=== PATIENT | female | born 1950 | race Caucasian/White ===

== ENCOUNTER 2023-09-03 21:33 | Inpatient (IN) | payer MEDICARE ==
[2023-09-03] MEDS: NITROGLYCERIN-D5W PMX 50 MG in DEXTROSE/WATER 1 250ML.BAG IV ONE (22:09)
--- NOTE | 2023-09-03 22:38 | XR ---
EXAM: XR Chest, 1 View CLINICAL HISTORY: SOB TECHNIQUE: Frontal view of the chest. COMPARISON: No relevant prior studies available. FINDINGS: Lungs: Diffuse reticulonodular interstitial changes, most notable in the perihilar regions and mid to lower lung zones with subsegmental changes in the bilateral lower lung zones. Mild vascular equalization suspected. Pleural space: Small bilateral pleural effusions suspected with blunting of the costophrenic margins. Heart: The cardiac silhouette is within normal limits. Mediastinum: The mediastinal contours are unremarkable. No tracheal deviation. Bones/joints: Unremarkable. No acute fracture. IMPRESSION: 1. Diffuse reticulonodular interstitial changes, most notable in the perihilar regions and mid to lower lung zones with subsegmental changes in the bilateral lower lung zones. Favor or asymmetric dependent edema; however, coexisting infection is difficult to exclude. Please correlate clinically. 2. Small bilateral pleural effusions suspected with blunting of the costophrenic margins. No pneumothorax.
[2023-09-03] MEDS: MORPHINE SULFATE 4 MG/ML SYRINGE IV STA (22:49)
[2023-09-03 22:59] LABS: Basophils # (A) 0.1 k/uL (0-0.2); Basophils % (A) 0 %; Eosinophils # (A) 0.3 k/uL (0-0.7); Eosinophils % (A) 2 %; HGB 13.6 gm/dL (11.4-16.0); Hypochromasia Slight; Lymphocytes # (A) 1.8 k/uL (1.0-4.8); Lymphocytes % (A) 13 %; MCH 29.8 pg (25.0-35.0); MCHC 32.4 g/dL (31.0-37.0); Mean Platelet Volume 8.7; Monocytes # (A) 0.3 k/uL (0-1.0); Monocytes % (A) 3 %; Neutrophils # (A) 10.5 k/uL (1.3-7.7); Neutrophils % (A) 80 %; Platelet Count 261 k/uL (150-450); RBC 4.57 m/uL (3.80-5.40); RDW 13.3 % (11.5-15.5); WBC 13.1 k/uL (3.8-10.6)
[2023-09-03 23:10] LABS: ALT 45 U/L (4-34); AST 66 U/L (14-36); African American GFR (CKD) 51 (>60 ml/min/1.73 sqM); Albumin 4.1 g/dL (3.5-5.0); Alkaline Phosphatase 108 U/L (38-126); Anion Gap 10 mmol/L; Blood Urea Nitrogen 24 mg/dL (7-17); Calcium 9.5 mg/dL (8.4-10.2); Carbon Dioxide 17 mmol/L (22-30); Chloride 111 mmol/L (98-107); Glucose 213 mg/dL (74-99); Non-African American GFR(CKD) 44 (>60 ml/min/1.73 sqM); Potassium 3.6 mmol/L (3.5-5.1); Sodium 138 mmol/L (137-145); Total Bilirubin 0.7 mg/dL (0.2-1.3); Total Protein 6.9 g/dL (6.3-8.2)
[2023-09-03 23:20] LABS: NT-Pro-B-Type Natriuretic Pept 8190 pg/mL
--- NOTE | 2023-09-03 23:22 | ED ---
SOB HPI - General Chief Complaint: Shortness of Breath Stated Complaint: Chest pain, Difficulty Breathing Time Seen by Provider: 09/03/23 21:48 Source: patient, EMS Mode of arrival: EMS - History of Present Illness Initial Comments: This patient is 73-year-old woman arrives in respiratory distress, only able to answer in single words due to dyspnea. Patient denies chest pain. Symptoms came on past hours. MD Complaint: shortness of breath -: hour(s) Severity scale (1-10): 0 Consistency: constant Improves With: nothing Worsens With: lying flat Treatments Prior to Arrival: oxygen, bronchodilator - Related Data Home Oxygen Therapy: No Allergies Allergy/AdvReac Type Severity Reaction Status Date / Time No Known Allergies Allergy Verified 09/03/23 21:48 Review of Systems ROS Statement: Those systems with pertinent positive or pertinent negative responses have been documented in the HPI. ROS Other: All systems not noted in ROS Statement are negative. Limitations: ROS unobtainable due to patients medical condition Respiratory: Reports: dyspnea Cardiovascular: Reports: orthopnea. Denies: chest pain, edema Gastrointestinal: Denies: abdominal pain, vomiting Musculoskeletal: Denies: back pain Neurological: Denies: headache, weakness Past Medical History Past Medical History: Hypertension Past Surgical History: No Surgical Hx Reported Smoking Status: Former smoker Past Alcohol Use History: Occasional Past Drug Use History: Marijuana General Exam General appearance: alert, in distress Head exam: Present: atraumatic, normocephalic Eye exam: Present: normal appearance. Absent: scleral icterus, conjunctival injection Neck exam: Present: normal inspection, full ROM Respiratory exam: Present: respiratory distress, rales, rhonchi Cardiovascular Exam: Present: normal rhythm, tachycardia. Absent: systolic murmur, diastolic murmur GI/Abdominal exam: Present: soft. Absent: distended, tenderness, guarding, rebound, rigid, mass Extremities exam: Present: normal inspection, normal capillary refill. Absent: pedal edema, calf tenderness Back exam: Present: normal inspection. Absent: CVA tenderness (R), CVA tenderness (L) Neurological exam: Present: alert Skin exam: Present: intact, diaphoretic, mottled. Absent: rash Course Vital Signs 09/03/23 09/03/23 09/03/23 21:42 22:04 22:10 Pulse Rate 109 H Respiratory 24 40 H Rate Blood Pressure 256/176 O2 Sat by Pulse 83 L Oximetry Fraction of 40 Inspired Oxygen (FIO2) 09/03/23 09/03/23 09/04/23 22:16 23:49 01:50 Pulse Rate 111 H 91 Respiratory 40 H 26 H Rate Blood Pressure 203/134 116/87 O2 Sat by Pulse 90 L 97 Oximetry Fraction of 50 Inspired Oxygen (FIO2) 09/04/23 09/04/23 09/04/23 02:00 02:30 03:32 Pulse Rate 78 95 91 Respiratory 21 29 H 20 Rate Blood Pressure 169/100 174/108 116/84 O2 Sat by Pulse 99 99 98 Oximetry Fraction of Inspired Oxygen (FIO2) Medical Decision Making - Medical Decision Making Had chest x-ray that I interpreted as showing changes consistent with acute congestive heart failure. There is no pneumothorax. No definite infiltrate. Patient is a 73-year-old woman who arrives in significant respiratory distress. The patient is placed on BiPAP and I started nitroglycerin drip. I did administer a number of aliquots of nitroglycerin myself while monitoring the patient at the bedside. The nitroglycerin drip was titrated up to 50 mcg/min. This in addition to the BiPAP and the additional aliquots of medication did begin to bring a clinical improvement. The patient's diaphoresis resolved. The blood pressure began to improve. - Lab Data Result diagrams: 09/04/23 02:28 09/03/23 22:46 Lab Results 09/03/23 09/03/23 09/03/23 Range/Units 22:30 22:46 22:46 WBC 13.1 H (3.8-10.6) k/uL RBC 4.57 (3.80-5.40) m/uL Hgb 13.6 (11.4-16.0) gm/dL Hct 42.0 (34.0-46.0) % MCV 92.0 (80.0-100.0) fL MCH 29.8 (25.0-35.0) pg MCHC 32.4 (31.0-37.0) g/dL RDW 13.3 (11.5-15.5) % Plt Count 261 (150-450) k/uL MPV 8.7 Neutrophils % 80 % Lymphocytes % 13 % Monocytes % 3 % Eosinophils % 2 % Basophils % 0 % Neutrophils # 10.5 H (1.3-7.7) k/uL Lymphocytes # 1.8 (1.0-4.8) k/uL Monocytes # 0.3 (0-1.0) k/uL Eosinophils # 0.3 (0-0.7) k/uL Basophils # 0.1 (0-0.2) k/uL Hypochromasia Slight PT 11.9 (10.0-12.5) sec INR 1.1 (<1.2) APTT 19.8 L (22.0-30.0) sec D-Dimer 5.35 H (<0.60) mg/L FEU Sodium (137-145) mmol/L Potassium (3.5-5.1) mmol/L Chloride (98-107) mmol/L Carbon Dioxide (22-30) mmol/L Anion Gap mmol/L BUN (7-17) mg/dL Creatinine (0.52-1.04) mg/dL Est GFR (CKD-EPI)AfAm (>60 ml/min/1.73 sqM) Est GFR (CKD-EPI)NonAf (>60 ml/min/1.73 sqM) Glucose (74-99) mg/dL Lactic Ac Sepsis Rflx Plasma Lactic Acid Lance (0.7-2.0) mmol/L Calcium (8.4-10.2) mg/dL Magnesium (1.6-2.3) mg/dL Total Bilirubin (0.2-1.3) mg/dL AST (14-36) U/L ALT (4-34) U/L Alkaline Phosphatase (38-126) U/L Troponin I (0.000-0.034) ng/mL NT-Pro-B Natriuret Pep pg/mL Total Protein (6.3-8.2) g/dL Albumin (3.5-5.0) g/dL Influenza Type A (PCR) Not Detected (Not Detectd) Influenza Type B (PCR) Not Detected (Not Detectd) RSV (PCR) Not Detected (Not Detectd) SARS-CoV-2 (PCR) Not Detected (Not Detectd) 09/03/23 09/03/23 09/03/23 Range/Units 22:46 22:46 22:46 WBC (3.8-10.6) k/uL RBC (3.80-5.40) m/uL Hgb (11.4-16.0) gm/dL Hct (34.0-46.0) % MCV (80.0-100.0) fL MCH (25.0-35.0) pg MCHC (31.0-37.0) g/dL RDW (11.5-15.5) % Plt Count (150-450) k/uL MPV Neutrophils % % Lymphocytes % % Monocytes % % Eosinophils % % Basophils % % Neutrophils # (1.3-7.7) k/uL Lymphocytes # (1.0-4.8) k/uL Monocytes # (0-1.0) k/uL Eosinophils # (0-0.7) k/uL Basophils # (0-0.2) k/uL Hypochromasia PT (10.0-12.5) sec INR (<1.2) APTT (22.0-30.0) sec D-Dimer (<0.60) mg/L FEU Sodium 138 (137-145) mmol/L Potassium 3.6 (3.5-5.1) mmol/L Chloride 111 H (98-107) mmol/L Carbon Dioxide 17 L (22-30) mmol/L Anion Gap 10 mmol/L BUN 24 H (7-17) mg/dL Creatinine 1.22 H (0.52-1.04) mg/dL Est GFR (CKD-EPI)AfAm 51 (>60 ml/min/1.73 sqM) Est GFR (CKD-EPI)NonAf 44 (>60 ml/min/1.73 sqM) Glucose 213 H (74-99) mg/dL Lactic Ac Sepsis Rflx Plasma Lactic Acid Lance 2.4 H* (0.7-2.0) mmol/L Calcium 9.5 (8.4-10.2) mg/dL Magnesium 2.0 (1.6-2.3) mg/dL Total Bilirubin 0.7 (0.2-1.3) mg/dL AST 66 H (14-36) U/L ALT 45 H (4-34) U/L Alkaline Phosphatase 108 (38-126) U/L Troponin I 0.030 (0.000-0.034) ng/mL NT-Pro-B Natriuret Pep 8190 pg/mL Total Protein 6.9 (6.3-8.2) g/dL Albumin 4.1 (3.5-5.0) g/dL Influenza Type A (PCR) (Not Detectd) Influenza Type B (PCR) (Not Detectd) RSV (PCR) (Not Detectd) SARS-CoV-2 (PCR) (Not Detectd) 09/03/23 Range/Units 23:34 WBC (3.8-10.6) k/uL RBC (3.80-5.40) m/uL Hgb (11.4-16.0) gm/dL Hct (34.0-46.0) % MCV (80.0-100.0) fL MCH (25.0-35.0) pg MCHC (31.0-37.0) g/dL RDW (11.5-15.5) % Plt Count (150-450) k/uL MPV Neutrophils % % Lymphocytes % % Monocytes % % Eosinophils % % Basophils % % Neutrophils # (1.3-7.7) k/uL Lymphocytes # (1.0-4.8) k/uL Monocytes # (0-1.0) k/uL Eosinophils # (0-0.7) k/uL Basophils # (0-0.2) k/uL Hypochromasia PT (10.0-12.5) sec INR (<1.2) APTT (22.0-30.0) sec D-Dimer (<0.60) mg/L FEU Sodium (137-145) mmol/L Potassium (3.5-5.1) mmol/L Chloride (98-107) mmol/L Carbon Dioxide (22-30) mmol/L Anion Gap mmol/L BUN (7-17) mg/dL Creatinine (0.52-1.04) mg/dL Est GFR (CKD-EPI)AfAm (>60 ml/min/1.73 sqM) Est GFR (CKD-EPI)NonAf (>60 ml/min/1.73 sqM) Glucose (74-99) mg/dL Lactic Ac Sepsis Rflx Y Plasma Lactic Acid Lance (0.7-2.0) mmol/L Calcium (8.4-10.2) mg/dL Magnesium (1.6-2.3) mg/dL Total Bilirubin (0.2-1.3) mg/dL AST (14-36) U/L ALT (4-34) U/L Alkaline Phosphatase (38-126) U/L Troponin I (0.000-0.034) ng/mL NT-Pro-B Natriuret Pep pg/mL Total Protein (6.3-8.2) g/dL Albumin (3.5-5.0) g/dL Influenza Type A (PCR) (Not Detectd) Influenza Type B (PCR) (Not Detectd) RSV (PCR) (Not Detectd) SARS-CoV-2 (PCR) (Not Detectd) - EKG Data -: EKG Interpreted by Me EKG shows normal: sinus rhythm, axis (Normal), intervals (Normal), QRS complexes (Possible anterior IA based on Q waves lead III) Rate: tachycardia (Rate 107 bpm) Interpretation: [facility] Critical Care Time Critical Care Time: Yes (40 minutes) Disposition Clinical Impression: Acute pulmonary edema, Hypertensive emergency Disposition: ADMITTED IP TO THIS HOSP Condition: Fair Is patient prescribed a controlled substance at d/c from ED?: No
[2023-09-03 23:24] LABS: INR 1.1 (<1.2); Prothrombin Time 11.9 sec (10.0-12.5)
[2023-09-03 23:25] LABS: Partial Thromboplastin Time 19.8 sec (22.0-30.0)
[2023-09-03] MEDS: HEPARIN SOD,PORK IN 0.45% NACL 25,000 UNIT in 0.45% NACL 1 250ML.BAG IV SCH (23:55)
[2023-09-03] MEDS: HEPARIN SODIUM 1,000 UN/ML (10ML VL) IV ONE (23:58)
[2023-09-04] MEDS: FUROSEMIDE 10 MG/ML 4 ML VIAL IV SCH (01:51)
[2023-09-04] MEDS: SODIUM CHLORIDE 0.9% 1,000 ML IV SCH (01:55)
[2023-09-04] MEDS: INSULIN REGULAR 100 UNIT/ML VIAL (IV) SQ STA (01:57)
--- NOTE | 2023-09-04 02:40 | CT ---
EXAM: CT Angiography Chest With Intravenous Contrast CLINICAL HISTORY: dyspnea, possible PE TECHNIQUE: Axial computed tomographic angiography images of the chest with intravenous contrast. CTDI is 23.5 mGy and DLP is 214.2 mGy-cm. This CT exam was performed using one or more of the following dose reduction techniques: automated exposure control, adjustment of the mA and/or kV according to patient size, and/or use of iterative reconstruction technique. MIP reconstructed images were created and reviewed. COMPARISON: No relevant prior studies available. FINDINGS: Pulmonary arteries: No evidence for pulmonary embolism. Aorta: Ectasia of the ascending aorta, with the mid ascending aorta measuring 4.1 x 4.3 cm. No dissection. The aortic arch and descending aorta are normal in caliber. Lungs: Dependent subsegmental changes posteriorly in both lungs. Centrilobular emphysematous changes noted throughout the lungs. There is interlobular septal thickening, ill-defined areas of ground-glass opacity and mild peribronchial cuffing noted. Pleural space: Layering bilateral pleural effusions noted, left slightly greater than right, with the left pleural effusion measuring approximately 2 cm in diameter inferiorly. No loculation. No pneumothorax. Heart: Mild cardiomegaly. There is reflux of contrast into the intrahepatic veins. Moderate coronary artery calcification of the LAD distribution. Bones/joints: No acute fracture. No dislocation. Soft tissues: Unremarkable. Lymph nodes: Unremarkable. No enlarged lymph nodes. IMPRESSION: 1. No evidence for pulmonary embolism. 2. Mild cardiomegaly. There is reflux of contrast into the intrahepatic veins. This is a nonspecific finding and may be related to rate of contrast administration. However, this finding is also commonly seen with right heart dysfunction. 3. Layering bilateral pleural effusions noted, left slightly greater than right, with the left pleural effusion measuring approximately 2 cm in diameter inferiorly. No loculation. 4. There is interlobular septal thickening, ill-defined areas of ground- glass opacity and mild peribronchial cuffing noted. Findings are most consistent with interstitial edema.
[2023-09-04] MEDS: IPRATROPIUM-ALBUTEROL 3 ML NEB INHALATION STA (03:23)
[2023-09-04 03:46] LABS: Basophils # (A) 0.1 k/uL (0-0.2); Basophils % (A) 1 %; Eosinophils % (A) 0 %; HCT 40.8 % (34.0-46.0); HGB 12.9 gm/dL (11.4-16.0); Hypochromasia Marked; Lymphocytes # (A) 0.6 k/uL (1.0-4.8); Lymphocytes % (A) 6 %; MCH 30.3 pg (25.0-35.0); MCHC 31.7 g/dL (31.0-37.0); MCV 95.6 fL (80.0-100.0); Mean Platelet Volume 7.7; Monocytes # (A) 0.3 k/uL (0-1.0); Monocytes % (A) 3 %; Neutrophils # (A) 8.8 k/uL (1.3-7.7); Neutrophils % (A) 89 %; Platelet Count 213 k/uL (150-450); RBC 4.27 m/uL (3.80-5.40); RDW 13.2 % (11.5-15.5); WBC 9.8 k/uL (3.8-10.6)
--- NOTE | 2023-09-04 03:52 | P.CNPUL ---
History of Present Illness Consult date: 09/04/23 Requesting physician: Satish Reyez Reason for consult: other (Hypertensive emergency/pulmonary edema) Chief complaint: Acute shortness of breath History of present illness: Patient is a 73-year-old female with little known past medical history. She does not have a current primary care provider. She does not take any current medications. She has taken antihypertensive medications in the past, but none within the last 3 years. She quit smoking approximately 2 weeks ago. Has a [id number] smoking history. She is currently accompanied by her who is at the bedside. Patient presented emergency department late last night complaining of acute shortness of breath that developed within the last couple hours. Patient's states that he found his short of breath last night. She was drenched in sweat. She had a fan on. She was doing fine the day prior, and they went for a motorcycle ride. No history of heart failure. On arrival to the emergency department, she was noted to be severely hypertensive, as high as 256/176 mmHg. She has since been started on a ni troglycerin infusion by the ER physician. States that she took herself off blood pressure medications approximately 3 years ago. She denies any chest pain. Denies any headache, vision changes, dizziness. chest x-ray taken on arrival demonstrating diffuse reticulonodular interstitial changes most notably in the perihilar and mid to lower lung zones. Favoring dependent pulmonary edema. There is also blunting of the bilateral costophrenic angles, likely pleural effusions. Coexisting infection was reportedly difficult to exclude. NT proBNP was elevated 8190. She is short of breath. She is on BiPAP with settings 10/5 and FiO2 of 50%. Respiratory rate is mid 20 breaths/min. Tidal volumes of around 500. Has been started on Lasix 40 mg twice daily. D-dimer was elevated at 5.35. She did have a follow-up chest CTA which was unremarkable for pulmonary embolism. There is some mild cardiomegaly, reflux contrast into the intrahepatic veins. Bilateral pleural effusions, left greater than right. No loculations. Interlobular septal thickening, ill-defined areas of groundglass opacity, and mild peribronchial cuffing. Consistent with interstitial edema. CBC: WBC count 13.1, hemoglobin 13.6, hematocrit 42, platelets 261. CMP: Sodium 138, potassium 3.6, chloride 111, serum bicarb 17, BUN 24, creatinine 1.22, glucose 213. Lactic 2.4. LFTs mildly elevated. Troponin 0.03. EKG showing sinus tachycardia with diffuse ST/T wave changes. Started on a heparin infusion while in the emergency department. Nitroglycerin infusion continues at 50 mics per minute. She is going to be admitted to the intensive care unit for blood pressure monitoring. Review of Systems REVIEW OF SYSTEMS: CONSTITUTIONAL: Admits unintentional 20 pound weight loss over the last 6 months. Denies fevers.. EYES: Denies change in vision. EARS, NOSE, MOUTH, THROAT: Denies headaches, denies sore throat. CARDIOVASCULAR: Denies chest pain, palpitations or syncopal episodes. RESPIRATORY: Denies coughing, sputum production, hemoptysis. Admits acute shortness of breath as described in HPI. GASTROINTESTINAL: Denies change in appetite, abdominal pain, nausea and vomiting, or diarrhea GENITOURINARY: Denies hematuria, denies infections. MUSKULOSKELETAL: Denies pain, denies swelling. INTEGUMENTARY: Denies rash, denies eczema. NEUROLOGICAL: Denies recent memory loss, no recent seizure activity. PSYCHIATRIC: Denies anxiety, denies depression. HEMATOLOGIC/LYMPHATIC: Denies anemia, denies enlarged lymph node Past Medical History Past Medical History: Hypertension Past Surgical History: No Surgical Hx Reported Smoking Status: Former smoker Past Alcohol Use History: Occasional Past Drug Use History: Marijuana Medications and Allergies Allergies Allergy/AdvReac Type Severity Reaction Status Date / Time No Known Allergies Allergy Verified 09/03/23 21:48 Physical Exam Vitals: Vital Signs Pulse Resp BP Pulse Ox FiO2 09/04/23 02:30 95 29 H 174/108 99 09/04/23 02:00 78 21 169/100 99 09/04/23 01:50 50 09/03/23 23:49 91 26 H 116/87 97 09/03/23 22:16 111 H 40 H 203/134 90 L 09/03/23 22:10 40 H 09/03/23 22:04 40 09/03/23 21:42 109 H 24 256/176 83 L Intake and Output 09/03/23 09/03/23 09/04/23 14:59 22:59 06:59 Intake Total 0.1 43.35 Balance 0.1 43.35 Intake: Intake, IV Titration 0.1 43.35 Amount Nitroglycerin-D5w Pmx 50 0.1 43.35 mg In Dextrose/Water 1 250ml.bag @ 20 MCG/MIN 6 mls/hr IV .Q24H ONE Rx#: [id number] Other: Weight 45.359 kg GENERAL EXAM: Alert, 73-year-old frail white female, on BiPAP, fairly comfortable in no apparent distress. Remains hypertensive. Nitroglycerin infusing at 50 mcg/min HEAD: Normocephalic and atraumatic EYES: Normal reaction of pupils, equal size. NOSE: Clear with pink turbinates. THROAT: No erythema or exudates. NECK: No masses, no JVD. CHEST: Bilateral irregular breast nodules/masses LUNGS: Equal air entry with inspiratory crackles/Rales. On BiPAP with settings 10/5 and FiO2 of 50%. Respiratory rate in the mid 20s. Tidal volumes averaging 500. No conversational dyspnea or accessory muscle use.. CVS: S1 and S2 normal with no audible murmur, regular rhythm. No extra heart sounds ABDOMEN: No hepatosplenomegaly, active bowel sounds, no guarding or rigidity. SPINE: No scoliosis or deformity SKIN: No rashes CENTRAL NERVOUS SYSTEM: No focal deficits, tone is normal in all 4 extremities. EXTREMITIES: There is no peripheral edema, clubbing, or cyanosis. Peripheral pulses are intact. Results - Laboratory Findings CBC and BMP: 09/03/23 22:46 09/03/23 22:46 PT/INR, D-dimer PT 11.9 sec (10.0-12.5) 09/03/23 22:46 INR 1.1 (<1.2) 09/03/23 22:46 D-Dimer 5.35 mg/L FEU (<0.60) H 09/03/23 22:46 Abnormal lab findings: Abnormal Labs 09/03/23 09/03/23 09/03/23 22:46 22:46 22:46 WBC 13.1 H Neutrophils # 10.5 H APTT 19.8 L D-Dimer 5.35 H Chloride 111 H Carbon Dioxide 17 L BUN 24 H Creatinine 1.22 H Glucose 213 H Plasma Lactic Acid Lance AST 66 H ALT 45 H 09/03/23 22:46 WBC Neutrophils # APTT D-Dimer Chloride Carbon Dioxide BUN Creatinine Glucose Plasma Lactic Acid Lance 2.4 H* AST ALT - Diagnostic Findings Chest x-ray: image reviewed CT scan - chest: image reviewed Assessment and Plan Assessment: Hypertensive emergency, currently on a nitroglycerin infusion at 50 mcg/min Acute hypoxemic respiratory failure, secondary to acute pulmonary edema Possible acute kidney injury versus chronic kidney disease, unknown baseline creatinine Mild transaminitis Bilateral breast nodules/masses, reportedly last mammogram was over 20 years ago Unintentional weight loss, reportedly 20 pounds over the last 6 months Former tobacco dependence, carrying over [id number] history Plan: Patient is going to be admitted to the intensive care unit for blood pressure management/monitoring Continue nitroglycerin infusion per protocol, blood pressure reduction goal is 25% in the first hour, will likely introduce oral antihypertensives over the next 24 to 48 hours. Patient was given dose of Lasix and started on Lasix 40 mg twice daily. Continue BiPAP support in the meantime with current settings. Echocardiogram was ordered Started on heparin infusion in the emergency department Cardiology consulted for antihypertensive management Obtain urinalysis, and follow-up with renal duplex to rule out secondary hypertension Obtain urine drug screen Recommend become established with primary care provider on discharge, as well as, scheduling follow-up mammogram Will continue to follow and participate in critical care management I have personally seen and examined the patient, performed the documentation and the assessment and plan as written. Number of minutes spent on the visit:20 Time with Patient: Greater than 30
[2023-09-04 04:12] LABS: Glucose,Whole Blood 90 mg/dL (70-110)
[2023-09-04 05:39] LABS: Glucose,Whole Blood 75 mg/dL (70-110)
[2023-09-04 06:32] LABS: African American GFR (CKD) 50 (>60 ml/min/1.73 sqM); Anion Gap 9 mmol/L; Blood Urea Nitrogen 25 mg/dL (7-17); Calcium 8.9 mg/dL (8.4-10.2); Carbon Dioxide 18 mmol/L (22-30); Chloride 112 mmol/L (98-107); Glucose 75 mg/dL (74-99); Non-African American GFR(CKD) 44 (>60 ml/min/1.73 sqM); Potassium 3.9 mmol/L (3.5-5.1); Sodium 139 mmol/L (137-145)
[2023-09-04 07:13] LABS: Appearance,Urine Clear (Clear); Bilirubin,Urine Negative (Negative); Blood,Urine Negative (Negative); Color,Urine Colorless; Glucose,Urine (UA) Negative (Negative); Ketones,Urine Negative (Negative); Leukocyte Esterase,Urine Negative (Negative); Nitrite,Urine Negative (Negative); Protein,Urine Negative (Negative); Specific Gravity,Urine 1.013 (1.001-1.035); Urobilinogen,Urine <2.0 mg/dL (<2.0)
[2023-09-04 07:21] LABS: Amphetamine Screen,Urine Not Detected (NotDetected); Barbiturate Screen,Urine Not Detected (NotDetected); Benzodiazepines Screen,Urine Not Detected (NotDetected); Cocaine Screen,Urine Not Detected (NotDetected); Methadone Screen, Urine Not Detected (NotDetected); Opiate Screen,Urine Detected (NotDetected); Oxycodone Screen, Urine Not Detected (NotDetected); Phencyclidine Screen,Urine Not Detected (NotDetected); Tricyclic Antidepressant,Urine Not Detected (NotDetected); Urn Cannabinoid Scrn Detected (NotDetected)
[2023-09-04] MEDS: HEPARIN SODIUM 1,000 UN/ML (10ML VL) IV PRN (08:06)
[2023-09-04 08:10] LABS: Glucose,Whole Blood 61 mg/dL (70-110)
[2023-09-04] MEDS: DEXTROSE 50% SYRINGE 50 ML IVP STA (08:20)
[2023-09-04 09:04] LABS: Glucose,Whole Blood 112 mg/dL (70-110)
[2023-09-04] MEDS: amLODIPine 5 MG TAB PO SCH (10:37)
[2023-09-04] MEDS ORDERED: carvediloL 6.25 MG TAB PO SCH (11:15)
--- NOTE | 2023-09-04 11:20 | P.CRDCN ---
History of Present Illness Consult date: 09/04/23 History of present illness: HISTORY OF PRESENTING ILLNESS 73-year-old female with no past medical history and is a poor historian. She has not seen any primary care physician in recent past. She was a past smoker with [id number] smoking history. Also reports cannabis use and opioid use occasionally. Patient presented to hospital because of worsening shortness of breath for last few days along with increased cough. On admission she was noticed to be s everely hypertensive with BP 250 over 170 mmHg. Patient Trop was negative, NT proBNP was 8000, D-dimers were elevated for which she had a CTA chest did not show any evidence of pulm embolism but did show interstitial edema and some emphysematous changes. ECG showed sinus tachycardia with diffuse nonspecific ST changes. REVIEW OF SYSTEMS 14 point review of system is negative except what is mentioned above in HPI. PHYSICAL EXAMINATION Vital signs reviewed. Head: Normocephalic. Eyes: Sclerae nonicteric. Neck: Brisk carotid upstroke, no jugular venous distention. Lungs: Clear to auscultation. Heart: Regular rate and rhythm, S1-S2, no S3, no murmur or rub. Abdomen: Soft nontender, positive bowel sounds. Extremities: No edema, intact distal pulses. Neuro: Alert, oritented, no focal deficits. Detailed neuro exam was not performed. ASSESSMENT Hypertensive urgency COPD emphysema, mild exacerbation Acute kidney injury Mild transaminitis Bilateral breast nodules Unintentional weight loss 20 pounds Tobacco use, marijuana use, opioid use. Carries [id number] smoking history PLAN Start aspirin 81 mg, atorvastatin 40 mg, Discontinue IV nitro drip. Start Coreg 3.125 mg twice daily. Start hydralazine 25 mg 4 times daily. Continue amlodipine. Obtain an echocardiogram Trend troponin levels If troponin levels are negative, discontinue IV heparin drip Watch for neurological signs symptoms. If concerns of mental status changes consider getting a CT head Once blood pressure stabilizes, consider transferring out of ICU Eddie Mendez MD, FACC, RPVI Thank you for allowing [facility] to participate in this patient's care. Feel free to reach out in case of any followup questions. Past Medical History Past Medical History: Hypertension History of Any Multi-Drug Resistant Organisms: None Reported Past Surgical History: No Surgical Hx Reported Past Anesthesia/Blood Transfusion Reactions: No Reported Reaction Smoking Status: Former smoker Past Alcohol Use History: Occasional Past Drug Use History: Marijuana Medications and Allergies Home Medications Medication Instructions Recorded Confirmed Type No Known Home Medications 09/04/23 09/04/23 History Allergies Allergy/AdvReac Type Severity Reaction Status Date / Time No Known Allergies Allergy Verified 09/04/23 10:47 Physical Exam Vitals: Vital Signs Temp Pulse Resp BP Pulse Ox FiO2 09/04/23 11:08 100 09/04/23 09:30 68 15 128/81 100 09/04/23 09:00 71 15 138/84 100 09/04/23 08:30 66 12 149/97 100 09/04/23 08:00 98.2 F 70 14 136/81 100 09/04/23 07:30 68 15 130/86 100 09/04/23 07:26 50 09/04/23 07:00 69 16 135/85 100 09/04/23 06:45 74 32 H 125/83 100 09/04/23 06:30 70 16 154/99 99 09/04/23 06:15 75 11 L 143/95 99 09/04/23 06:00 75 14 163/119 98 09/04/23 05:45 98 31 H 181/117 95 09/04/23 05:30 66 22 94/69 99 09/04/23 05:18 82 38 H 118/67 99 09/04/23 05:00 106 H 26 H 151/100 99 09/04/23 04:45 105 H 33 H 182/109 98 09/04/23 04:30 108 H 33 H 183/132 99 09/04/23 03:32 91 20 116/84 98 09/04/23 02:30 95 29 H 174/108 99 09/04/23 02:00 78 21 169/100 99 09/04/23 01:50 50 09/03/23 23:49 91 26 H 116/87 97 09/03/23 22:16 111 H 40 H 203/134 90 L 09/03/23 22:10 40 H 09/03/23 22:04 40 09/03/23 21:42 109 H 24 256/176 83 L Intake and Output 09/03/23 09/04/23 09/04/23 22:59 06:59 14:59 Intake Total 0.1 147.100 107.47 Output Total 600 100 Balance 0.1 -452.900 7.47 Intake: IV 40 60 Sodium Chloride 0.9% 1, 40 60 000 ml @ 20 mls/hr IV . Q24H [facility] Rx#:[id number] Intake, IV Titration 0.1 107.100 47.47 Amount Heparin Sod,Pork in 0.45% 44.27 NaCl 25,000 unit In 0.45 % NaCl 1 250ml.bag @ 12 UNITS/KG/HR 5.443 mls/hr IV .Q24H [facility] Rx#: [id number] Nitroglycerin-D5w Pmx 50 0.1 107.100 3.2 mg In Dextrose/Water 1 250ml.bag @ 20 MCG/MIN 6 mls/hr IV .Q24H [facility] Rx#: [id number] Output: Urine 600 100 Other: Voiding Method External Catheter External Catheter Weight 45.359 kg 45.359 kg Results 09/04/23 02:28 09/04/23 05:47 Cardiac Enzymes 09/03/23 09/03/23 Range/Units 22:46 22:46 AST 66 H (14-36) U/L Troponin I 0.030 (0.000-0.034) ng/mL Coagulation 09/03/23 09/04/23 Range/Units 22:46 05:47 PT 11.9 (10.0-12.5) sec APTT 19.8 L 33.2 H (22.0-30.0) sec CBC 09/03/23 09/04/23 Range/Units 22:46 02:28 WBC 13.1 H 9.8 (3.8-10.6) k/uL RBC 4.57 4.27 (3.80-5.40) m/uL Hgb 13.6 12.9 (11.4-16.0) gm/dL Hct 42.0 40.8 (34.0-46.0) % Plt Count 261 213 (150-450) k/uL Comprehensive Metabolic Panel 09/03/23 09/04/23 Range/Units 22:46 05:47 Sodium 138 139 (137-145) mmol/L Potassium 3.6 3.9 (3.5-5.1) mmol/L Chloride 111 H 112 H (98-107) mmol/L Carbon Dioxide 17 L 18 L (22-30) mmol/L BUN 24 H 25 H (7-17) mg/dL Creatinine 1.22 H 1.23 H (0.52-1.04) mg/dL Glucose 213 H 75 (74-99) mg/dL Calcium 9.5 8.9 (8.4-10.2) mg/dL AST 66 H (14-36) U/L ALT 45 H (4-34) U/L Alkaline Phosphatase 108 (38-126) U/L Total Protein 6.9 (6.3-8.2) g/dL Albumin 4.1 (3.5-5.0) g/dL Current Medications Generic Name Dose Route Start Last Admin Trade Name Freq PRN Reason Stop Dose Admin Amlodipine Besylate 5 mg 09/04/23 10:15 09/04/23 10:37 Amlodipine 5 Mg Tab PO 5 mg DAILY PATRICIA Administration Aspirin 81 mg 09/04/23 11:15 Aspirin 81 Mg PO DAILY PATRICIA Atorvastatin Calcium 40 mg 09/04/23 21:00 Atorvastatin 40 Mg Tab PO HS PATRICIA Carvedilol 3.125 mg 09/04/23 11:15 Carvedilol 3.125 Mg Tab PO BID-W/MEALS [facility] Heparin Sodium (Porcine) 0 unit 09/03/23 23:36 09/04/23 08:06 Heparin Sodium 1,000 Un/Ml (10ml Vl) IV 2,265 unit PER PROTOCOL PRN Administration Low PTT Protocol Hydralazine HCl 25 mg 09/04/23 11:15 Hydralazine Hcl 25 Mg Tab PO QID [facility] Nitroglycerin/Dextrose 50 mg/ 250 mls @ 6 mls/hr 09/03/23 21:56 09/04/23 07:01 IV Solution IV 09/04/23 21:55 35 mcg/min .Q24H [facility] 10.5 mls/hr Titration Protocol 20 MCG/MIN Heparin Sodium/Sodium Chloride 250 mls @ 5.443 mls/hr 09/03/23 23:45 09/04/23 08:03 25,000 unit/ Sodium Chloride IV 15 units/kg/hr .Q24H [facility] 6.804 mls/hr Titration Protocol 12 UNITS/KG/HR Sodium Chloride 1,000 mls @ 20 mls/hr 09/04/23 01:15 09/04/23 01:55 Saline 0.9% IV 20 mls/hr .Q24H [facility] Administration Intake and Output 09/03/23 09/04/23 09/04/23 22:59 06:59 14:59 Intake Total 0.1 147.100 107.47 Output Total 600 100 Balance 0.1 -452.900 7.47 Intake: IV 40 60 Sodium Chloride 0.9% 1, 40 60 000 ml @ 20 mls/hr IV . Q24H [facility] Rx#:[id number] Intake, IV Titration 0.1 107.100 47.47 Amount Heparin Sod,Pork in 0.45% 44.27 NaCl 25,000 unit In 0.45 % NaCl 1 250ml.bag @ 12 UNITS/KG/HR 5.443 mls/hr IV .Q24H [facility] Rx#: [id number] Nitroglycerin-D5w Pmx 50 0.1 107.100 3.2 mg In Dextrose/Water 1 250ml.bag @ 20 MCG/MIN 6 mls/hr IV .Q24H [facility] Rx#: [id number] Output: Urine 600 100 Other: Voiding Method External Catheter External Catheter Weight 45.359 kg 45.359 kg 09/04/23 02:28 09/04/23 05:47
[2023-09-04 11:38] LABS: Glucose,Whole Blood 72 mg/dL (70-110)
[2023-09-04 12:00] VITALS: BMI 15.6
[2023-09-04] MEDS: ASPIRIN 81 MG PO SCH (12:18)
[2023-09-04] MEDS: carvediloL 3.125 MG TAB PO SCH (12:19)
[2023-09-04] MEDS: hydrALAZINE HCL 25 MG TAB PO SCH (12:19)
[2023-09-04] MEDS ORDERED: IPRATROPIUM-ALBUTEROL 3 ML NEB INHALATION PRN (12:37)
[2023-09-04] MEDS ORDERED: LORazepam 1 MG TAB PO PRN ×3 (12:40)
[2023-09-04] MEDS ORDERED: LORazepam 2 MG/ML INJ IV PRN ×2 (12:40)
[2023-09-04] MEDS ORDERED: LORazepam 0.5 MG TAB PO PRN (12:40)
[2023-09-04] MEDS ORDERED: hydrALAZINE HCL 50 MG TAB PO SCH (13:00)
--- NOTE | 2023-09-04 14:33 | HP ---
HISTORY AND PHYSICAL CHIEF COMPLAINT: Shortness of breath. HISTORY OF PRESENT ILLNESS: This is a 73-year-old woman with a past medical history of multiple medical problems including hypertension, apparently not being followed in the primary and the patient has significant alcohol intake. The patient presented with significant shortness of breath. The patient also had COPD exacerbation bilateral pneumonia. The patient also had hypertensive urgency, CIWA protocol is being considered. The patient is being transferred to ICU. Multiple medications are initiated. The patient is on nitroglycerin drip also. There is no history of any fever, rigors, or chills at this time. PAST MEDICAL HISTORY: Reviewed include hypertension, history of noncompliance, rest of the history and rest of the chart is also reviewed. HOME MEDICATIONS: None. ALLERGIES: None. FAMILY HISTORY: Discharged strokes family. SOCIAL HISTORY: History of THC. History of smoking, no alcohol. REVIEW OF SYSTEMS: A 14-point review is negative as mentioned. PHYSICAL EXAMINATION: VITAL SIGNS: Pulse is 71, blood pressure 130/38 respirations 15. HEENT: Conjunctivae normal. NECK: No jugular venous distention. RESPIRATIONS: Diminished at the bases. Bilateral scattered rhonchi and crackles. ABDOMEN: Soft. LEGS: No edema, no swelling. NERVOUS SYSTEM: Diffusely weak and emaciated. SKIN: No rash joints no active colon. LABORATORY DATA: Noted glucose 213, creatinine 1.2. rest of the labs are noted assessment. 1. Chronic obstructive pulmonary disease acute exacerbation with acute bilateral pneumonia, possibly consider gram-negative or aspiration pneumonia. 2. Elevated D-dimer without any evidence of pulmonary embolism. 3. Rule out focal malignancy. 4. Troponin 0.105 indeterminate. 5. Hypertensive urgency. 6. Acute delirium tremens. RECOMMENDATIONS AND DISCUSSION: Recommend to continue current management and continue symptomatic treatment. Otherwise at this time I will recommend to initiate intensive bronchodilator treatment, empiric antibiotics, multiple consultations. Prognosis guarded because of multiple complex medical issues. Further prognosis and we also continue with CIWA protocol. DVT prophylaxis. The patient is on IV heparin. Cardiology has been seen. 2D echo with Doppler is ordered. Further recommendations to follow. MMODL / IJN: [id number] /
[2023-09-04 14:42] LABS: INR 1.1 (<1.2); Partial Thromboplastin Time 64.8 sec (22.0-30.0)
[2023-09-04] MEDS: IPRATROPIUM-ALBUTEROL 3 ML NEB INHALATION SCH (14:59)
[2023-09-04 16:45] LABS: Chol/HDL Ratio 2.17 Ratio; LDL Cholesterol,Calculated 84.2 mg/dL (0.0-131.0); VLDL Calculation 11.06 mg/dL (5.00-40.00)
[2023-09-04 16:57] LABS: Glucose,Whole Blood 98 mg/dL (70-110)
[2023-09-04] MEDS: PIPERACILLIN-TAZOBACTAM 3.375 GM in SODIUM CHLORIDE 0.9% 100 ML IVPB SCH (17:07)
--- NOTE | 2023-09-04 18:19 | CA ---
Transthoracic Echo Report Name: Tayler Shannon Age: 73 Gender: F : 1950 Exam Date: 09/04/2023 13:22 Exam Location: [facility] Ht (in): 67 Wt (lb): 100 Ordering Physician: Jimmie Hawkins Attending/Referring Phys: Rn Field Sara Theodore RDCS Procedure CPT: Indications: evaluate LV function Cardiac Hx: Technical Quality: Fair Contrast 1: Total Dose (mL): Contrast 2: Total Dose (mL): MEASUREMENTS (Male / Female) Normal Values 2D ECHO LV Diastolic Diameter PLAX 4.0 cm 4.2 - 5.9 / 3.9 - 5.3 cm LV Systolic Diameter PLAX 3.4 cm IVS Diastolic Thickness 1.6 cm 0.6 - 1.0 / 0.6 - 0.9 cm LVPW Diastolic Thickness 1.2 cm 0.6 - 1.0 / 0.6 - 0.9 cm LV Relative Wall Thickness 0.7 RV Internal Dim ED PLAX 2.4 cm LV Diastolic Volume MOD BP 123.7 cm??? 67 - 155 / 56 - 104 cm??? LV Systolic Volume MOD BP 101.4 cm??? 22 - 58 / 19 - 49 cm??? LV Ejection Fraction MOD BP 18.0 % >= 55 % LV Cardiac Index MOD BP 1154.4 cm???/min???m??? LV Diastolic Volume MOD 4C 122.5 cm??? LV Systolic Volume MOD 4C 126.5 cm??? LV Ejection Fraction MOD 4C -3.3 % LV Cardiac Index MOD 4C -207.6 cm???/min???m??? LV Diastolic Length 4C 6.6 cm LV Systolic Length 4C 7.1 cm LV Diastolic Volume MOD 2C 116.0 cm??? LV Systolic Volume MOD 2C 73.8 cm??? LV Ejection Fraction MOD 2C 36.4 % LV Cardiac Index MOD 2C 2187.5 cm???/min???m??? LV Diastolic Length 2C 7.2 cm LV Systolic Length 2C 6.3 cm LA Volume 70.4 cm??? 18 - 58 / 22 - 52 cm??? LA Volume Index 48.7 cm???/m??? 16 - 28 cm???/m??? M-MODE Aortic Root Diameter MM 3.3 cm LA Systolic Diameter MM 2.8 cm LA Ao Ratio MM 0.9 AV Cusp Separation MM 1.9 cm DOPPLER AV Peak Velocity 169.1 cm/s AV Peak Gradient 11.4 mmHg AV Mean Velocity 117.8 cm/s AV Mean Gradient 6.2 mmHg AV Velocity Time Integral 28.2 cm AI Peak Velocity 404.1 cm/s AI Peak Gradient 65.3 mmHg AI Pressure Half Time 536.3 ms LVOT Peak Velocity 131.6 cm/s LVOT Peak Gradient 6.9 mmHg LVOT Velocity Time Integral 21.8 cm MV Area PHT 11.1 cm??? Mitral E Point Velocity 86.0 cm/s Mitral A Point Velocity 108.4 cm/s Mitral E to A Ratio 0.8 MV Deceleration Time 68.5 ms MV E' Velocity 4.9 cm/s Mitral E to MV E' Ratio 17.7 TR Peak Velocity 289.4 cm/s TR Peak Gradient 33.5 mmHg Right Ventricular Systolic Press 38.5 mmHg FINDINGS Left Ventricle Moderately increased left ventricular wall thickness. Moderately increased left ventricular diastolic volume. Severely increased left ventricular systolic volume. Severely decreased left ventricular ejection fraction. Left ventricular ejection fraction is estimated at 30-35 %. Grade 1 diastolic dysfunction. Right Ventricle Normal right ventricular size and function. Mild pulmonary hypertension. Right Atrium Normal right atrial size. Left Atrium Moderately increased left atrial volume. Mildly increased left atrial area. Mitral Valve Structurally normal mitral valve. Mild mitral annular calcification. Mild-to- moderate mitral regurgitation. Aortic Valve Trileaflet aortic valve. No aortic stenosis. Mild aortic regurgitation. Tricuspid Valve Structurally normal tricuspid valve. Mild tricuspid regurgitation. Pulmonic Valve Structurally normal pulmonic valve. Trace pulmonic regurgitation. Pericardium No pericardial effusion. Aorta Normal size aortic root and proximal ascending aorta. CONCLUSIONS Diagnosis: Congestive heart failure acute on chronic, hypertensive urgency Result: Dilated left ventricle with severe LV dysfunction, increased LV mass Moderate mitral regurgitation, left atrial enlargement Previewed by: Dr. Delgado Lauren MD (Electronically Signed) Final Date: 04 September 2023 18:19
[2023-09-04 19:05] LABS: HIV 2 AB Non-Reactive (Non-Reactive); HIV AB P24 Non-Reactive (Non-Reactive); HIV P24 AG Non-Reactive (Non-Reactive)
[2023-09-04] MEDS: ATORVASTATIN 40 MG TAB PO SCH (20:47)
[2023-09-04] MEDS ORDERED: ALPRAZolam 0.25 MG TAB PO PRN (21:23)
--- NOTE | 2023-09-04 22:15 | P.CONS ---
History of Present Illness - Reason for Consult Consult date: 09/04/23 Pneumonia Requesting physician: Xavier You - Chief Complaint Increasing shortness of breath x few days - History of Present Illness Patient is a 73-year-old female with a past medical history significant for hypertension former smoker, patient was brought into the hospital for evaluation of increasing shortness of breath that apparently has been getting worse over the last few days patient was noted to be in significant respiratory distress on arrival to the ER no clear history of any chest pain no significant cough or sputum production. Denies having any URI symptoms no nausea no vomiting no choking on food no abdominal pain or any diarrhea patient on the presented to the hospital was afebrile no fever have been recorded subsequently patient was tachycardic on admission that had resolved patient did have a significant elevated blood pressure with a systolic of 256 and diastolic of 176 on admission blood pressure has subsequently improved patient was hypoxic with O2 sats 73% room air she is currently 98% 2 L cannula oxygen patient did have a white count of 13.1 on admission BUN/creatinine has been mildly elevated lactic acid was elevated liver isms mildly elevated urine has been negative urine drug screen was positive for opiates and marijuana HIV influenza RSV and COVID testing was negative patient did have a chest x-ray diffuse reticulo nodular interstitial changes most notable in left perihilar region patient also have a CT angiogram of the chest that was negative for PE did shows mild cardiomegaly bilateral effusion and interlobular septal thickening ill-defined areas of groundglass opacity patient has been started on Zosyn infectious disease was consulted concerning for pneumonia Review of Systems Positive point and negatives has been mentioned in the HPI, complete review of systems was performed and all other systems are negative Past Medical History Past Medical History: Hypertension History of Any Multi-Drug Resistant Organisms: None Reported Past Surgical History: No Surgical Hx Reported Past Anesthesia/Blood Transfusion Reactions: No Reported Reaction Smoking Status: Former smoker Past Alcohol Use History: Occasional Past Drug Use History: Marijuana Medications and Allergies Home Medications Medication Instructions Recorded Confirmed Type No Known Home Medications 09/04/23 09/04/23 History Allergies Allergy/AdvReac Type Severity Reaction Status Date / Time No Known Allergies Allergy Verified 09/04/23 10:47 Physical Exam Vitals: Vital Signs Temp Pulse Resp BP Pulse Ox FiO2 09/04/23 13:00 84 17 159/92 99 09/04/23 12:30 80 12 162/109 98 09/04/23 12:00 98.4 F 76 19 145/89 99 09/04/23 11:30 91 24 195/119 99 09/04/23 11:08 100 09/04/23 11:00 75 17 168/108 100 09/04/23 10:30 73 17 152/91 100 09/04/23 10:00 91 20 142/85 100 09/04/23 09:30 68 15 128/81 100 09/04/23 09:00 71 15 138/84 100 09/04/23 08:30 66 12 149/97 100 09/04/23 08:00 98.2 F 70 14 136/81 100 09/04/23 07:30 68 15 130/86 100 09/04/23 07:26 50 09/04/23 07:00 69 16 135/85 100 09/04/23 06:45 74 32 H 125/83 100 09/04/23 06:30 70 16 154/99 99 09/04/23 06:15 75 11 L 143/95 99 09/04/23 06:00 75 14 163/119 98 09/04/23 05:45 98 31 H 181/117 95 09/04/23 05:30 66 22 94/69 99 09/04/23 05:18 82 38 H 118/67 99 09/04/23 05:00 106 H 26 H 151/100 99 09/04/23 04:45 105 H 33 H 182/109 98 09/04/23 04:30 108 H 33 H 183/132 99 09/04/23 03:32 91 20 116/84 98 09/04/23 02:30 95 29 H 174/108 99 09/04/23 02:00 78 21 169/100 99 09/04/23 01:50 50 09/03/23 23:49 91 26 H 116/87 97 09/03/23 22:16 111 H 40 H 203/134 90 L 09/03/23 22:10 40 H 09/03/23 22:04 40 09/03/23 21:42 109 H 24 256/176 83 L Intake and Output 09/03/23 09/04/23 09/04/23 22:59 06:59 14:59 Intake Total 0.1 147.100 243.645 Output Total 600 100 Balance 0.1 -452.900 143.645 Intake: IV 40 140 Sodium Chloride 0.9% 1, 40 140 000 ml @ 20 mls/hr IV . Q24H [facility] Rx#:[id number] Intake, IV Titration 0.1 107.100 103.645 Amount Heparin Sod,Pork in 0.45% 44.27 NaCl 25,000 unit In 0.45 % NaCl 1 250ml.bag @ 12 UNITS/KG/HR 5.443 mls/hr IV .Q24H [facility] Rx#: [id number] Nitroglycerin-D5w Pmx 50 0.1 107.100 59.375 mg In Dextrose/Water 1 250ml.bag @ 20 MCG/MIN 6 mls/hr IV .Q24H [facility] Rx#: [id number] Output: Urine 600 100 Other: Voiding Method External Catheter External Catheter # Voids 1 Weight 45.359 kg 45.359 kg 45.359 kg GENERAL DESCRIPTION: Elderly female lying in bed, no distress. No tachypnea or accessory muscle of respiration use. HEENT: Shows Pallor , no scleral icterus. Oral mucous membrane is dry. No pharyngeal erythema or thrush NECK: Trachea central, no thyromegaly. LUNGS: Unlabored breathing. Decreased breath sound the base HEART: S1, S2, regular rate and rhythm. No loud murmur ABDOMEN: Soft, no tenderness , guarding or rigidity, no organomegaly EXTREMITIES: No edema of feet. SKIN: No rash, no masses palpable. Patient examined in the presence of RN shows significant nodularity and hardness no redness NEUROLOGICAL: The patient is awake, alert, oriented x3, mood and affect normal. Results CBC & Chem 7: 09/04/23 02:28 09/04/23 05:47 Labs: Abnormal Lab Results - Last 24 Hours (Table) 09/03/23 09/03/23 09/03/23 Range/Units 22:46 22:46 22:46 WBC 13.1 H (3.8-10.6) k/uL Neutrophils # 10.5 H (1.3-7.7) k/uL Lymphocytes # (1.0-4.8) k/uL APTT 19.8 L (22.0-30.0) sec D-Dimer 5.35 H (<0.60) mg/L FEU Chloride 111 H (98-107) mmol/L Carbon Dioxide 17 L (22-30) mmol/L BUN 24 H (7-17) mg/dL Creatinine 1.22 H (0.52-1.04) mg/dL Glucose 213 H (74-99) mg/dL POC Glucose (mg/dL) (70-110) mg/dL Plasma Lactic Acid Lance (0.7-2.0) mmol/L AST 66 H (14-36) U/L ALT 45 H (4-34) U/L Troponin I (0.000-0.034) ng/mL Urine Opiates Screen (NotDetected) U Marijuana (THC) Screen (NotDetected) 09/03/23 09/04/23 09/04/23 Range/Units 22:46 02:28 05:47 WBC (3.8-10.6) k/uL Neutrophils # 8.8 H (1.3-7.7) k/uL Lymphocytes # 0.6 L (1.0-4.8) k/uL APTT 33.2 H (22.0-30.0) sec D-Dimer (<0.60) mg/L FEU Chloride (98-107) mmol/L Carbon Dioxide (22-30) mmol/L BUN (7-17) mg/dL Creatinine (0.52-1.04) mg/dL Glucose (74-99) mg/dL POC Glucose (mg/dL) (70-110) mg/dL Plasma Lactic Acid Lance 2.4 H* (0.7-2.0) mmol/L AST (14-36) U/L ALT (4-34) U/L Troponin I (0.000-0.034) ng/mL Urine Opiates Screen (NotDetected) U Marijuana (THC) Screen (NotDetected) 09/04/23 09/04/23 09/04/23 Range/Units 05:47 06:20 08:09 WBC (3.8-10.6) k/uL Neutrophils # (1.3-7.7) k/uL Lymphocytes # (1.0-4.8) k/uL APTT (22.0-30.0) sec D-Dimer (<0.60) mg/L FEU Chloride 112 H (98-107) mmol/L Carbon Dioxide 18 L (22-30) mmol/L BUN 25 H (7-17) mg/dL Creatinine 1.23 H (0.52-1.04) mg/dL Glucose (74-99) mg/dL POC Glucose (mg/dL) 61 L (70-110) mg/dL Plasma Lactic Acid Lance (0.7-2.0) mmol/L AST (14-36) U/L ALT (4-34) U/L Troponin I (0.000-0.034) ng/mL Urine Opiates Screen Detected H (NotDetected) U Marijuana (THC) Screen Detected H (NotDetected) 09/04/23 09/04/23 Range/Units 09:03 11:19 WBC (3.8-10.6) k/uL Neutrophils # (1.3-7.7) k/uL Lymphocytes # (1.0-4.8) k/uL APTT (22.0-30.0) sec D-Dimer (<0.60) mg/L FEU Chloride (98-107) mmol/L Carbon Dioxide (22-30) mmol/L BUN (7-17) mg/dL Creatinine (0.52-1.04) mg/dL Glucose (74-99) mg/dL POC Glucose (mg/dL) 112 H (70-110) mg/dL Plasma Lactic Acid Lance (0.7-2.0) mmol/L AST (14-36) U/L ALT (4-34) U/L Troponin I 0.104 H* (0.000-0.034) ng/mL Urine Opiates Screen (NotDetected) U Marijuana (THC) Screen (NotDetected) Assessment and Plan (1) SIRS (systemic inflammatory response syndrome) Current Visit: Yes Status: Acute Code(s): R65.10 - SIRS OF NON-INFECTIOUS ORIGIN W/O ACUTE ORGAN DYSFUNCTION SNOMED Code(s): 710578332 (2) Pulmonary infiltrate on chest x-ray Current Visit: Yes Status: Acute Code(s): R91.8 - OTHER NONSPECIFIC ABNORMAL FINDING OF LUNG FIELD SNOMED Code(s): 837316583 (3) Breast nodule Current Visit: Yes Status: Acute Code(s): N63.0 - UNSPECIFIED LUMP IN UNSPECIFIED BREAST SNOMED Code(s): 65310024 Plan: 1patient presented to hospital with increasing shortness of breath and this patient has been diagnosed with a hypertensive emergency as she did have significant elevated blood pressure and features suggestive of heart failure fro m elevated blood pressure patient did have features of SIRS with tachycardia elevated white count elevated lactic send admission more likely related to underlying cardiac condition pneumonia less likely bilateral excluded. 2patient was noticed to have hard nodules in bilateral breast area and this patient did not have any mammogram in more than 10 years highly suspicious for malignancy. 3we will try to obtain sputum for Gram stain culture check a CRP and a procalcitonin 4obtain ultrasound of bilateral breast area 5May continue with Zosyn while waiting for the workup to be completed We will follow on clinical condition and cultures to further adjust medication if needed Thank you for this consultation we will follow the patient along with you Dictation was produced using [employer] dictation software. please excuse any grammatical, word or spelling errors. Time with Patient: Greater than 30
[2023-09-05 00:07] LABS: Glucose,Whole Blood 89 mg/dL (70-110)
[2023-09-05] MEDS: LORazepam 2 MG/ML INJ IV PRN (00:22)
[2023-09-05] MEDS: SODIUM CHLORIDE 0.9% 1,000 ML in EMPTY BAG 1 BAG IV SCH (01:54)
[2023-09-05 06:01] LABS: Basophils # (A) 0.1 k/uL (0-0.2); Basophils % (A) 1 %; Eosinophils # (A) 0.3 k/uL (0-0.7); Eosinophils % (A) 4 %; HGB 12.4 gm/dL (11.4-16.0); Lymphocytes # (A) 1.5 k/uL (1.0-4.8); Lymphocytes % (A) 23 %; MCH 31.2 pg (25.0-35.0); MCHC 34.3 g/dL (31.0-37.0); MCV 90.8 fL (80.0-100.0); Mean Platelet Volume 8.2; Monocytes # (A) 0.4 k/uL (0-1.0); Monocytes % (A) 6 %; Neutrophils # (A) 4.3 k/uL (1.3-7.7); Neutrophils % (A) 65 %; Platelet Count 147 k/uL (150-450); RBC 3.97 m/uL (3.80-5.40); RDW 13.6 % (11.5-15.5); WBC 6.6 k/uL (3.8-10.6)
[2023-09-05 06:32] LABS: Glucose,Whole Blood 90 mg/dL (70-110)
[2023-09-05 06:40] LABS: African American GFR (CKD) 53 (>60 ml/min/1.73 sqM); Anion Gap 5 mmol/L; Blood Urea Nitrogen 19 mg/dL (7-17); Calcium 9.4 mg/dL (8.4-10.2); Carbon Dioxide 23 mmol/L (22-30); Chloride 109 mmol/L (98-107); Glucose 85 mg/dL (74-99); Non-African American GFR(CKD) 46 (>60 ml/min/1.73 sqM); Potassium 3.5 mmol/L (3.5-5.1); Sodium 137 mmol/L (137-145)
[2023-09-05] MEDS ORDERED: HEPARIN SODIUM,PORCINE (1 ML) 2,500 UNIT in SODIUM CHLORIDE 0.9% 250 ML IRRIGATION PRN (07:00)
[2023-09-05] MEDS ORDERED: HEPARIN SODIUM,PORCINE 10,000 UNIT in SODIUM CHLORIDE 0.9% 1,000 ML IRRIGATION PRN (07:00)
[2023-09-05] MEDS ORDERED: Potassium Replacement Protocol 1 EACH MISC MISCELLANE PRN (08:15)
--- NOTE | 2023-09-05 08:27 | XR ---
EXAMINATION TYPE: XR chest 1V portable DATE OF EXAM: 09/05/2023 8:07 AM CLINICAL INDICATION:Female, 73 years old with history of chf; COMPARISON: Chest radiographs from 09/03/2023. TECHNIQUE: XR chest 1V portable Frontal view of the chest. FINDINGS: Lungs/Pleura: There is no evidence of pleural effusion, focal consolidation, or pneumothorax. Pulmonary vascularity: Near resolution of interstitial edema. Heart/mediastinum: Cardiomediastinal silhouette is unremarkable. Musculoskeletal: No acute osseous pathology. Other findings: None IMPRESSION: Improved aeration of the lungs compared to 09/03/2023.
[2023-09-05] MEDS: ASPIRIN 81 MG PO ONE (09:10)
[2023-09-05] MEDS: MIDAZOLAM 2 MG/2 ML VIAL IVP ONE (09:10)
[2023-09-05] MEDS: fentaNYL (PF) 50 MCG/ML 2 ML AMP IVP ONE (09:10)
[2023-09-05] MEDS: IV FLUID CONTINUATION 950 ML IV ONE (09:11)
[2023-09-05] MEDS: LIDOCAINE 1% INJ 10MG/ML (20 ML MDV) SQ ONE (09:18)
--- NOTE | 2023-09-05 09:18 | US ---
EXAMINATION TYPE: US renal artery duplex complet DATE OF EXAM: 09/05/2023 COMPARISON: NONE CLINICAL INDICATION: Female, 73 years old with history of rule out HUBERT; MEASUREMENTS: RENAL SIZE: Right Kidney: 10.6 x 4.0 x 3.6 cm Left Kidney: 9.5 x 4.5 x 3.8 cm Right Kidney: ? stones vs calcifications Left Kidney: ? stones vs calcifications Abd Aorta: Slightly ectatic with calcific falcon. RESISTANCE INDEX Right: 0.87 Left: 0.79 RA/AO RATIO (< 3.5 ) Right: 0.8 Left: 0.9 RENAL ARTERY VELOCITY ( < 180 cm/s) Right: 71 Left: 75 Family Service Counselor Notes: IMPRESSION: No sonographic evidence to suggest renal artery stenosis.
[2023-09-05] MEDS: hydrALAZINE HCL 20 MG/ML 1 ML VIAL IVP ONE ×4 (09:19→09:48)
[2023-09-05] MEDS: NITROGLYCERIN 1000MCG/10ML SYRINGE INTRAARTER ONE ×2 (09:25→09:48)
[2023-09-05] MEDS: HEPARIN SODIUM 1,000 UN/ML (10ML VL) IVP ONE (09:29)
[2023-09-05] MEDS: IOPAMIDOL-370 200ML BTL INJ ONE (09:49)
[2023-09-05] MEDS: POTASSIUM CHLORIDE ER 20 MEQ TAB.ER PO SCH (12:54)
[2023-09-05] MEDS: LOSARTAN 25 MG TAB PO SCH (16:13)
--- NOTE | 2023-09-05 16:17 | P.PN ---
Subjective Progress Note Date: 09/05/23 Principal diagnosis: Hypertensive emergency Patient is a 73-year-old female with little known past medical history. She does not have a current primary care provider. She does not take any current medications. She has taken antihypertensive medications in the past, but none within the last 3 years. She quit smoking approximately 2 weeks ago. Has a 11-ehdf-prrp smoking history. She is currently accompanied by her who is at the bedside. Patient presented emergency department late last night complaining of acute shortness of breath that developed within the last couple hours. Patient's states that he found his short of breath last night. She was drenched in sweat. She had a fan on. She was doing fine the day prior, and they went for a motorcycle ride. No history of heart failure. On arrival to the emergency department, she was noted to be severely hypertensive, as high as 256/176 mmHg. She has since been started on a nitroglycerin infusion by the ER physician. States that she took herself off blood pressure medications approximately 3 years ago. She denies any chest pain. Denies any headache, vision changes, dizziness. chest x-ray taken on arrival demonstrating diffuse reticulonodular interstitial changes most notably in the perihilar and mid to lower lung zones. Favoring dependent pulmonary edema. There is also blunting of the bilateral costophrenic angles, likely pleural effusions. Coexisting infection was reportedly difficult to exclude. NT proBNP was elevated 8190. She is short of breath. She is on BiPAP with settings 10/5 and FiO2 of 50%. Respiratory rate is mid 20 breaths/min. Tidal volumes of around 500. Has been started on Lasix 40 mg twice daily. D-dimer was elevated at 5.35. She did have a follow-up chest CTA which was unremarkable for pulmonary embolism. There is some mild cardiomegaly, reflux contrast into the intrahepatic veins. Bilateral pleural effusions, left greater than right. No loculations. Interlobular septal thickening, ill-defined areas of groundglass opacity, and mild peribronchial cuffing. Consistent with interstitial edema. CBC: WBC count 13.1, hemoglobin 13.6, hematocrit 42, platelets 261. CMP: Sodium 138, potassium 3.6, chloride 111, serum bicarb 17, BUN 24, creatinine 1.22, glucose 213. Lactic 2.4. LFTs mildly elevated. Troponin 0.03. EKG showing sinus tachycardia with diffuse ST/T wave changes. Started on a heparin infusion while in the emergency department. Nitroglycerin infusion continues at 50 mics per minute. She is going to be admitted to the intensive care unit for blood pressure monitoring. Patient was eval today on 09/05/2023, patient remains in the ICU, she is not on any drips at this point. Her blood pressure seems to be much better controlled with oral medication, patient underwent catheterization today, I was told by the nurses that there was no evidence of any significant coronary artery disease. Patient is doing well, feeling comfortable, not in any distress, she is presently on room air. X-ray has shown significant improvement in her pulmonary edema. CBC is normal basic metabolic profile is normal BUN is 19 creatinine 1.17 improved compared to the last 2 days Objective - Vital Signs Vital signs: Vital Signs Temp 97.8 F 09/05/23 12:15 Pulse 94 09/05/23 13:18 Resp 16 09/05/23 13:18 BP 122/74 09/05/23 12:15 Pulse Ox 93 L 09/05/23 13:05 FiO2 50 09/04/23 07:26 Intake & Output 09/04/23 09/05/23 09/05/23 18:59 06:59 18:59 Intake Total 363.645 556.451 575 Output Total 351 1000 850 Balance 12.645 -443.549 -674 Weight 45.359 kg 50 kg Intake: IV 260 60 500 Piperacillin-Tazobactam 3 50 .375 gm In Sodium Chloride 0.9% 100 ml @ 25 mls/hr IVPB Q8HR [facility] Rx# :[id number] Sodium Chloride 0.9% 1, 260 60 000 ml @ 20 mls/hr IV . Q24H [facility] Rx#:[id number] Sodium Chloride 0.9% 1, 150 000 ml In Empty Bag 1 bag @ 75 mls/hr IV .[id number] [facility] Rx#:[id number] Intake, IV Titration 103.645 496.451 75 Amount Heparin Sod,Pork in 0.45% 44.27 121.451 NaCl 25,000 unit In 0.45 % NaCl 1 250ml.bag @ 12 UNITS/KG/HR 5.443 mls/hr IV .Q24H [facility] Rx#: [id number] Nitroglycerin-D5w Pmx 50 59.375 mg In Dextrose/Water 1 250ml.bag @ 20 MCG/MIN 6 mls/hr IV .Q24H [facility] Rx#: [id number] Sodium Chloride 0.9% 1, 375 75 000 ml In Empty Bag 1 bag @ 75 mls/hr IV .[id number] [facility] Rx#:[id number] Output: Urine 350 1000 850 Stool 1 Other: Voiding Method External Catheter External Catheter # Voids 1 # Bowel Movements 0 - Exam GENERAL 73-year-old female in no distress, on room air HEENT: no scleral icterus. Oral mucous membrane is dry. No pharyngeal erythema or thrush NECK: Supple no neck masses no JVD no stridor. LUNGS: Clear bilaterally diminished at the bases no crackles rhonchi or wheezes HEART: S1, S2, regular rate and rhythm. No loud murmur ABDOMEN: Soft, no tenderness , guarding or rigidity, no organomegaly EXTREMITIES: No edema of feet. SKIN: No rash, no masses palpable. Patient examined in the presence of RN shows significant nodularity and hardness no redness NEUROLOGICAL: Alert and oriented x 3 no gross focal deficit Psychiatric: Normal mood affect and no mental status examination - Labs CBC & Chem 7: 09/05/23 05:38 09/05/23 05:38 Labs: Abnormal Lab Results - Last 24 Hours (Table) 09/04/23 09/05/23 09/05/23 Range/Units 11:19 05:38 05:38 Plt Count 147 L (150-450) k/uL APTT (22.0-30.0) sec Chloride 109 H (98-107) mmol/L BUN 19 H (7-17) mg/dL Creatinine 1.17 H (0.52-1.04) mg/dL HDL Cholesterol 81.70 H (40.00-60.00) mg/dL 09/05/23 Range/Units 05:38 Plt Count (150-450) k/uL APTT 43.1 H (22.0-30.0) sec Chloride (98-107) mmol/L BUN (7-17) mg/dL Creatinine (0.52-1.04) mg/dL HDL Cholesterol (40.00-60.00) mg/dL Assessment and Plan Assessment: Impression: Hypertensive emergency, resolved Acute hypoxemic respiratory failure, secondary to acute pulmonary edema resolved Acute kidney injury, significantly improved Mild transaminitis Bilateral breast nodules/masses, reportedly last mammogram was over 20 years ago Unintentional weight loss, reportedly 20 pounds over the last 6 months Former tobacco dependence, carrying over 11-vygf-flko history Recommendation: Continue present supportive care measures Continue blood pressure medication Counseled regarding smoking cessation and medical compliance Breast ultrasound is pending Patient could be transferred out of the ICU to a monitored bed and selective Will continue to follow Time with Patient: Less than 30
--- NOTE | 2023-09-05 18:50 | P.CARDCATH ---
Date of Procedure: 09/05/23 Description of Procedure: DIAGNOSTIC CORONARY ANGIOGRAPHY and LEFT HEART CATH REPORT PROCEDURES PERFORMED: Left heart catheterization Selective coronary angiography Moderate conscious sedation 30 mins Right radial access INDICATION: NSTEMI CONSENT: I have explained the procedural steps of above-mentioned procedures in layman's terms to the patient. I discussed the risks (including but not limited to stroke, emergent vascular or cardiac surgery or ), benefits and alternative therapies for the above-mentioned procedure. I discussed the risks of sedation/analgesia and blood product administration (if indicated). The patient has indicated understanding and acceptance of these risks. Conscious Sedation: Patient's ECG, heart rate, blood pressure, pulse oximetry were monitored throughout the duration of procedure under my direct supervision. 1 mg Versed and 25 mcg Fentanyl were used for induction of moderate conscious sedation. Total duration of moderate concious sedation 30 minutes. PROCEDURE: After explaining the risks, benefits and alternatives of the above mentioned procedures in detail to the patient, informed consent was obtained. Patient was taken to the catheterization lab, prepped and draped in usual sterile fashion using universal precuations. Ultrasound was used to identify the radial artery. 1% lidocaine was infiltrated over the right radial artery. A 6-[place]an sheath was placed and secured in the right radial artery using modified Seldinger technique. The sheath was flushed and 5 mg verapamil was administered intra-arterially. J tipped wire was advanced under fluoroscopic guidance. Once the wire tip reached aortic root 3000 units of IV heparin was given. Over the wire JR4 diagnostic catheter was advanced. The wire in place the catheter was manipulated to cross the aortic valve and entered into LV under fluoroscopy guidance. The wire was removed and the catheter was flushed. LV pressures were obtained and pullback was performed under fluoroscopy. Catheter was manipulated to selectively engage the right coronary ostium. Right coronary angiography was performed in different angiographic projections. The JR4 diagnostic catheter was exchanged for a JL 3.5 diagnostic catheter over the J-wire. The wire was removed, catheter was flushed and manipulated under fluoroscopy to selectively engaged the left coronary ostium. Left coronary angioplasty was performed in different angiographic projections. Catheter was removed over the wire. Radial sheath was flushed. The right radial sheath was removed and a TR band was placed with excellent patent hemostasis was achieved. The patient tolerated the procedure well. Patient was transported back to the post catheterization holding area in stable condition. Angiographic images were reviewed in detail. During the procedure patient was hypertensive. She received total of 40 mg of IV hydralazine and 400 mcg of nitroglycerin in divided doses. HEMODYNAMICS: Aortic Pressure: 145/87 mmHg. LV pressure: 150/4 mmHg. LVEDP 10 mmHg. There was no significant gradient across the aortic valve. SELECTIVE CORONARY ARTERIOGRAPHY: LEFT MAIN: The left main is short and large caliber vessel. It bifurcates into the LAD and circumflex. Left main appears angiographically normal. LEFT ANTERIOR DESCENDING CORONARY ARTERY: LAD is a large caliber vessel which wraps around to the apex. Proximal LAD appears to have 10 to 20% luminal narrowing. Mid LAD appears to have mild luminal irregularities. Distal LAD appears angiographically normal. It gives rise to a diagonal branch which is medium in size and distally gives multiple branches. It appears angiographically patent. LEFT CIRCUMFLEX CORONARY ARTERY: It is nondominant vessel. Left circumflex is a moderate caliber vessel. Proximal LCx has mild luminal irregularities and is otherwise patent. It gives rise to OM branch which appears angiographically patent. RIGHT CORONARY ARTERY: Dominant vessel. The right coronary artery is a large caliber vessel which gives PDA and PLV branch. RCA has 30 to 40% diffuse luminal irregularities in proximal mid and distal segments. The PDA and PL branch appears angiographically normal with mild luminal irregularities. IMPRESSION: Mild nonobstructive coronary artery disease Normal LVEDP Hypertensive heart disease Nonischemic cardiomyopathy PLAN: Aggressive risk factor modification per most recent ACC/AHA guidelines. Optimize antihypertensives Place patient on appropriate guideline directed medical therapy to manage cardiomyopathy Further recommendations to follow Performing Physician dEdie Mendez MD, FACC, RPVI Thank you for allowing [facility] to participate in this patient's care. Feel free to reach out in case of any followup questions.
--- NOTE | 2023-09-05 23:51 | PN ---
PROGRESS NOTE DATE OF SERVICE: 09/05/2023 SUBJECTIVE: This is a 73-year-old woman who was admitted with COPD acute exacerbation with bilateral pneumonia as well as elevated D-dimer and hypertension, also had acute delirium tremens. The patient was closely monitored. The patient is off nitroglycerin drip at this time, closely monitored in ICU. Repeat chest x-ray which I reviewed personally showed some improvement. PAST MEDICAL HISTORY: Reviewed. REVIEW OF SYSTEMS: A 14-point review is negative except as mentioned earlier. CURRENT MEDICATIONS: Lipitor, dose and rest of medications noted. PHYSICAL EXAMINATION: VITAL SIGNS: Pulse 93, blood pressure 120/70, respirations 22. HEENT: Conjunctivae normal. NECK: No jugular venous distention. CARDIOVASCULAR: S1, S2. RESPIRATIONS: Diminished at the bases, few scattered rhonchi. ABDOMEN: Soft. NERVOUS SYSTEM: Nonfocal. LABORATORY DATA: Creatinine 1.17. ASSESSMENT: 1. Chronic obstructive pulmonary disease acute exacerbation with acute bilateral pneumonia, possibly gram-negative or aspiration pneumonia. 2. Elevated D-dimer without any evidence of acute pulmonary embolism. 3. Hypertensive urgency. 4. Acute delirium tremens. 5. Troponin 0.105, indeterminate. 6. Rule out focal malignancy. RECOMMENDATIONS AND DISCUSSION: Recommended to continue current medications, continue symptomatic treatment, otherwise closely follow with multiple consultants. Continue with bronchodilators. Blood pressure is improved as mentioned earlier. A 2D echo with Doppler showed dilated severe LV dysfunction, ejection fraction about 35%. Once again, the prognosis is extremely guarded because of multiple complex medical issues. Further recommendations to follow. MMODL / IJN: [id number] /
[2023-09-06 07:10] LABS: Basophils % (A) 0 %; Eosinophils # (A) 0.1 k/uL (0-0.7); Eosinophils % (A) 2 %; HCT 36.3 % (34.0-46.0); HGB 11.9 gm/dL (11.4-16.0); Lymphocytes # (A) 1.3 k/uL (1.0-4.8); Lymphocytes % (A) 20 %; MCH 29.8 pg (25.0-35.0); MCHC 32.8 g/dL (31.0-37.0); MCV 90.9 fL (80.0-100.0); Mean Platelet Volume 7.5; Monocytes # (A) 0.4 k/uL (0-1.0); Monocytes % (A) 6 %; Neutrophils # (A) 4.5 k/uL (1.3-7.7); Neutrophils % (A) 70 %; Platelet Count 209 k/uL (150-450); RDW 13.4 % (11.5-15.5); WBC 6.4 k/uL (3.8-10.6)
[2023-09-06 07:23] LABS: ALT 18 U/L (4-34); AST 20 U/L (14-36); African American GFR (CKD) 43 (>60 ml/min/1.73 sqM); Albumin 2.9 g/dL (3.5-5.0); Alkaline Phosphatase 54 U/L (38-126); Anion Gap 2 mmol/L; Blood Urea Nitrogen 14 mg/dL (7-17); Calcium 9.5 mg/dL (8.4-10.2); Carbon Dioxide 24 mmol/L (22-30); Chloride 113 mmol/L (98-107); Glucose 87 mg/dL (74-99); Non-African American GFR(CKD) 38 (>60 ml/min/1.73 sqM); Potassium 4.2 mmol/L (3.5-5.1); Sodium 139 mmol/L (137-145); Total Protein 5.3 g/dL (6.3-8.2)
--- NOTE | 2023-09-06 08:47 | USB ---
Patient History: Menarche at age 10. Patient has no children. Postmenopausal. Maternal unspecified had breast cancer. Sister had breast cancer. Risk Values: Lakeisha 5 year model risk: 3.8%. NCI Lifetime model risk: 8.6%. Technique: Method: Targeted. Doppler: Color. Patient Position: Supine. Prior Study Comparison: 07/09/2000 Bilateral Screening Mammogram, [facility]. 07/31/2000 Right Special View Mammogram, [facility]. Findings: The area of palpable concern of both breasts and the axilla of both breasts were scanned. There appear to be bilateral breast implants which are likely made of silicone. There is a prominent lymph node left axilla measuring 1.1 x 1.0 cm at the left 12:00 position 4 cm from the nipple. There is also a masslike area at the left breast. Biopsy is recommended of each site however appropriate workup is recommended which is to include bilateral mammograms. Overall Assessment: Incomplete: need additional imaging evaluation, BI-RAD 0 Management: Diagnostic Mammogram of both breasts. A clinical breast exam by your physician is recommended on an annual basis and results should be correlated with mammographic findings. This exam should not preclude additional follow-up of suspicious palpable abnormalities. Results were given to the patient verbally at the time of exam. Electronically signed and approved by: Tae Aguilar M.D. Radiologis
[2023-09-06 10:51] VITALS: TEMP 98
[2023-09-06 13:17] VITALS: BP 141/75; PULSE 92; RESP 19
--- NOTE | 2023-09-06 14:14 | P.PN ---
Subjective Progress Note Date: 09/06/23 Principal diagnosis: Hypertensive emergency Patient is a 73-year-old female with little known past medical history. She does not have a current primary care provider. She does not take any current medications. She has taken antihypertensive medications in the past, but none within the last 3 years. She quit smoking approximately 2 weeks ago. Has a 70-nhva-ilbv smoking history. She is currently accompanied by her who is at the bedside. Patient presented emergency department late last night complaining of acute shortness of breath that developed within the last couple hours. Patient's states that he found his short of breath last night. She was drenched in sweat. She had a fan on. She was doing fine the day prior, and they went for a motorcycle ride. No history of heart failure. On arrival to the emergency department, she was noted to be severely hypertensive, as high as 256/176 mmHg. She has since been started on a nitroglycerin infusion by the ER physician. States that she took herself off blood pressure medications approximately 3 years ago. She denies any chest pain. Denies any headache, vision changes, dizziness. chest x-ray taken on arrival demonstrating diffuse reticulonodular interstitial changes most notably in the perihilar and mid to lower lung zones. Favoring dependent pulmonary edema. There is also blunting of the bilateral costophrenic angles, likely pleural effusions. Coexisting infection was reportedly difficult to exclude. NT proBNP was elevated 8190. She is short of breath. She is on BiPAP with settings 10/5 and FiO2 of 50%. Respiratory rate is mid 20 breaths/min. Tidal volumes of around 500. Has been started on Lasix 40 mg twice daily. D-dimer was elevated at 5.35. She did have a follow-up chest CTA which was unremarkable for pulmonary embolism. There is some mild cardiomegaly, reflux contrast into the intrahepatic veins. Bilateral pleural effusions, left greater than right. No loculations. Interlobular septal thickening, ill-defined areas of groundglass opacity, and mild peribronchial cuffing. Consistent with interstitial edema. CBC: WBC count 13.1, hemoglobin 13.6, hematocrit 42, platelets 261. CMP: Sodium 138, potassium 3.6, chloride 111, serum bicarb 17, BUN 24, creatinine 1.22, glucose 213. Lactic 2.4. LFTs mildly elevated. Troponin 0.03. EKG showing sinus tachycardia with diffuse ST/T wave changes. Started on a heparin infusion while in the emergency department. Nitroglycerin infusion continues at 50 mics per minute. She is going to be admitted to the intensive care unit for blood pressure monitoring. Patient was eval today on 09/05/2023, patient remains in the ICU, she is not on any drips at this point. Her blood pressure seems to be much better controlled with oral medication, patient underwent catheterization today, I was told by the nurses that there was no evidence of any significant coronary artery disease. Patient is doing well, feeling comfortable, not in any distress, she is presently on room air. X-ray has shown significant improvement in her pulmonary edema. CBC is normal basic metabolic profile is normal BUN is 19 creatinine 1.17 improved compared to the last 2 days Patient was seen examined today on 09/06/2023, patient is doing well, asymptomatic, no cough no wheezing no shortness of breath, she underwent cardiac catheterization yesterday, she was found to have mild nonobstructive coronary artery disease with normal left ventricular end-diastolic pressure. Patient is doing great today, asymptomatic, and I will clear the patient for discharge if cleared by other consultants. Considering her breast findings and considering her abnormal mammogram, patient should be at least seen by surgery for outpatient follow-up regarding her breast findings and she may need a breast biopsy Objective - Vital Signs Vital signs: Vital Signs Temp 98 F 09/06/23 08:00 Pulse 92 09/06/23 13:00 Resp 19 09/06/23 13:00 BP 141/75 09/06/23 13:00 Pulse Ox 97 09/06/23 12:00 FiO2 50 09/04/23 07:26 Intake & Output 09/05/23 09/06/23 09/06/23 18:59 06:59 18:59 Intake Total 575 250 220 Output Total 850 550 Balance -275 -300 220 Weight 48.9 kg Intake: IV 500 250 100 Piperacillin-Tazobactam 3 50 100 100 .375 gm In Sodium Chloride 0.9% 100 ml @ 25 mls/hr IVPB Q8HR [facility] Rx# :[id number] Sodium Chloride 0.9% 1, 150 150 000 ml In Empty Bag 1 bag @ 75 mls/hr IV .[id number] [facility] Rx#:[id number] Intake, IV Titration 75 Amount Sodium Chloride 0.9% 1, 75 000 ml In Empty Bag 1 bag @ 75 mls/hr IV .[id number] [facility] Rx#:[id number] Oral 120 Output: Urine 850 550 Other: Voiding Method External Catheter External Catheter External Catheter - Exam GENERAL 73-year-old female in no distress, on room air HEENT: no scleral icterus. Oral mucous membrane is dry. No pharyngeal erythema or thrush NECK: Supple no neck masses no JVD no stridor. LUNGS: Clear bilaterally diminished at the bases no crackles rhonchi or wheezes HEART: S1, S2, regular rate and rhythm. No loud murmur ABDOMEN: Soft, no tenderness , guarding or rigidity, no organomegaly EXTREMITIES: No edema of feet. SKIN: No rash, no masses palpable. Patient examined in the presence of RN shows significant nodularity and hardness no redness NEUROLOGICAL: Alert and oriented x 3 no gross focal deficit Psychiatric: Normal mood affect and no mental status examination Breast examination was performed, and there was evidence of multiple nodular changes noted in the right breast, with dimpling of the nipple and peau d"orange breast/ rt - Labs CBC & Chem 7: 09/06/23 06:34 09/06/23 06:34 Labs: Abnormal Lab Results - Last 24 Hours (Table) 09/06/23 Range/Units 06:34 Chloride 113 H (98-107) mmol/L Creatinine 1.38 H (0.52-1.04) mg/dL Total Protein 5.3 L (6.3-8.2) g/dL Albumin 2.9 L (3.5-5.0) g/dL Microbiology - Last 24 Hours (Table) 09/04/23 00:58 Blood Culture - Preliminary Blood Assessment and Plan Assessment: Impression: Hypertensive emergency, resolved Acute hypoxemic respiratory failure, secondary to acute pulmonary edema resolved Acute kidney injury, significantly improved Mild transaminitis Bilateral breast nodules/masses, reportedly last mammogram was over 20 years ago Unintentional weight loss, reportedly 20 pounds over the last 6 months Former tobacco dependence, carrying over 66-wkms-bypc history Possible breast cancer, will need at least surgical evaluation and outpatient follow-up Recommendation: Will clear the patient for discharge if cleared by other individual pension consultant Continue blood pressure medication Counseled regarding smoking cessation and medical compliance Continue bronchodilators on outpatient basis for underlying COPD Time with Patient: Less than 30
--- NOTE | 2023-09-06 14:52 | P.PN ---
Subjective Progress Note Date: 09/06/23 Principal diagnosis: Reason for follow-up is abnormal CT question of pneumonia Patient is a 73-year-old female with a past medical history significant for hypertension former smoker, patient was brought into the hospital for evaluation of increasing shortness of breath, patient be diagnosed with hypertensive urgency requiring admission to the ICU patient also have a CT angiogram of the chest concerning for some groundglass opacity concerning for pneumonia prompting this consultation. On today's evaluation that is 09/06/2023, Patient did have low-grade fever of 99 F last night, the patient is afebrile this morning patient denies having any chest pain shortness of breath or cough, the patient is breathing comfortably and currently on room air, patient denies any abdominal pain no diarrhea no nausea no vomiting, patient mention feeling better. Patient white count is 6.4 with creatinine 1.38 blood culture has been negative Objective - Vital Signs Vital signs: Vital Signs Temp 98 F 09/06/23 08:00 Pulse 53 L 09/06/23 10:00 Resp 20 09/06/23 10:00 BP 143/86 09/06/23 10:00 Pulse Ox 97 09/06/23 10:00 FiO2 50 09/04/23 07:26 Intake & Output 09/05/23 09/06/23 09/06/23 18:59 06:59 18:59 Intake Total 575 250 Output Total 850 550 Balance -275 -300 Weight 48.9 kg Intake: IV 500 250 Piperacillin-Tazobactam 3 50 100 .375 gm In Sodium Chloride 0.9% 100 ml @ 25 mls/hr IVPB Q8HR [facility] Rx# :[id number] Sodium Chloride 0.9% 1, 150 150 000 ml In Empty Bag 1 bag @ 75 mls/hr IV .[id number] [facility] Rx#:[id number] Intake, IV Titration 75 Amount Sodium Chloride 0.9% 1, 75 000 ml In Empty Bag 1 bag @ 75 mls/hr IV .[id number] [facility] Rx#:[id number] Output: Urine 850 550 Other: Voiding Method External Catheter External Catheter - Exam GENERAL DESCRIPTION: An elderly female lying in bed in no distress RESPIRATORY SYSTEM: Unlabored breathing , decreased breath sounds at bases HEART: S1 S2 regular rate and rhythm , ABDOMEN: Soft , no tenderness EXTREMITIES: No edema feet - Labs CBC & Chem 7: 09/06/23 06:34 09/06/23 06:34 Labs: Abnormal Lab Results - Last 24 Hours (Table) 09/06/23 Range/Units 06:34 Chloride 113 H (98-107) mmol/L Creatinine 1.38 H (0.52-1.04) mg/dL Total Protein 5.3 L (6.3-8.2) g/dL Albumin 2.9 L (3.5-5.0) g/dL Microbiology - Last 24 Hours (Table) 09/04/23 00:58 Blood Culture - Preliminary Blood Assessment and Plan (1) SIRS (systemic inflammatory response syndrome) Current Visit: Yes Status: Acute Code(s): R65.10 - SIRS OF NON-INFECTIOUS ORIGIN W/O ACUTE ORGAN DYSFUNCTION SNOMED Code(s): 719460138 (2) Pulmonary infiltrate on chest x-ray Current Visit: Yes Status: Acute Code(s): R91.8 - OTHER NONSPECIFIC ABNORMAL FINDING OF LUNG FIELD SNOMED Code(s): 709848549 (3) Breast nodule Current Visit: Yes Status: Acute Code(s): N63.0 - UNSPECIFIED LUMP IN UNSPECIFIED BREAST SNOMED Code(s): 59119841 Plan: 1patient presented to hospital with increasing shortness of breath and this patient has been diagnosed with a hypertensive emergency as she did have significant elevated blood pressure and features suggestive of heart failure from elevated blood pressure patient did have features of SIRS with tachycardia elevated white count elevated lactic send admission more likely related to underlying cardiac condition pneumonia less likely bilateral excluded. 2patient was noticed to have hard nodules in bilateral breast area and this patient did not have any mammogram in more than 10 years highly suspicious for malignancy, ultrasound has been done and the patient be referred to Dr John Garcia supposed to see her this afternoon. 3nursing staff mention patient has been cleared for discharge and asking for discharge antibiotic will consider short course of oral Ceftin on discharge Dictation was produced using [employer] dictation software. please excuse any grammatical, word or spelling errors. Time with Patient: Less than 30
--- NOTE | 2023-09-06 14:52 | P.PN ---
Subjective Progress Note Date: 09/05/23 Principal diagnosis: Reason for follow-up is abnormal CT question of pneumonia Patient is a 73-year-old female with a past medical history significant for hypertension former smoker, patient was brought into the hospital for evaluation of increasing shortness of breath, patient be diagnosed with hypertensive urgency requiring admission to the ICU patient also have a CT angiogram of the chest concerning for some groundglass opacity concerning for pneumonia prompting this consultation. On today's evaluation that is 09/05/2023, patient has been afebrile, patient is breathing comfortably and is currently on room air, patient denies having any significant cough no chest pain shortness of breath, patient denies nausea vomiting or diarrhea and no abdominal pain. Patient white count is 6.6, creatinine is 1.17 Objective - Vital Signs Vital signs: Vital Signs Temp 97.8 F 09/05/23 12:15 Pulse 93 09/05/23 13:05 Resp 16 09/05/23 13:05 BP 122/74 09/05/23 12:15 Pulse Ox 93 L 09/05/23 13:05 FiO2 50 09/04/23 07:26 Intake & Output 09/04/23 09/05/23 09/05/23 18:59 06:59 18:59 Intake Total 363.645 556.451 575 Output Total 351 1000 850 Balance 12.579 -090.858 -228 Weight 45.359 kg 50 kg Intake: IV 260 60 500 Piperacillin-Tazobactam 3 50 .375 gm In Sodium Chloride 0.9% 100 ml @ 25 mls/hr IVPB Q8HR [facility] Rx# :[id number] Sodium Chloride 0.9% 1, 260 60 000 ml @ 20 mls/hr IV . Q24H [facility] Rx#:[id number] Sodium Chloride 0.9% 1, 150 000 ml In Empty Bag 1 bag @ 75 mls/hr IV .[id number] [facility] Rx#:[id number] Intake, IV Titration 103.645 496.451 75 Amount Heparin Sod,Pork in 0.45% 44.27 121.451 NaCl 25,000 unit In 0.45 % NaCl 1 250ml.bag @ 12 UNITS/KG/HR 5.443 mls/hr IV .Q24H [facility] Rx#: [id number] Nitroglycerin-D5w Pmx 50 59.375 mg In Dextrose/Water 1 250ml.bag @ 20 MCG/MIN 6 mls/hr IV .Q24H [facility] Rx#: [id number] Sodium Chloride 0.9% 1, 375 75 000 ml In Empty Bag 1 bag @ 75 mls/hr IV .[id number] [facility] Rx#:[id number] Output: Urine 350 1000 850 Stool 1 Other: Voiding Method External Catheter External Catheter # Voids 1 # Bowel Movements 0 - Exam GENERAL DESCRIPTION: An elderly female lying in bed in no distress RESPIRATORY SYSTEM: Unlabored breathing , decreased breath sounds at bases HEART: S1 S2 regular rate and rhythm , ABDOMEN: Soft , no tenderness EXTREMITIES: No edema feet - Labs CBC & Chem 7: 09/06/23 06:34 09/06/23 06:34 Labs: Abnormal Lab Results - Last 24 Hours (Table) 09/04/23 09/04/23 09/05/23 Range/Units 11:19 14:17 05:38 Plt Count 147 L (150-450) k/uL APTT 64.8 H (22.0-30.0) sec Chloride (98-107) mmol/L BUN (7-17) mg/dL Creatinine (0.52-1.04) mg/dL HDL Cholesterol 81.70 H (40.00-60.00) mg/dL 09/05/23 09/05/23 Range/Units 05:38 05:38 Plt Count (150-450) k/uL APTT 43.1 H (22.0-30.0) sec Chloride 109 H (98-107) mmol/L BUN 19 H (7-17) mg/dL Creatinine 1.17 H (0.52-1.04) mg/dL HDL Cholesterol (40.00-60.00) mg/dL Assessment and Plan (1) SIRS (systemic inflammatory response syndrome) Current Visit: Yes Status: Acute Code(s): R65.10 - SIRS OF NON-INFECTIOUS ORIGIN W/O ACUTE ORGAN DYSFUNCTION SNOMED Code(s): 246366850 (2) Pulmonary infiltrate on chest x-ray Current Visit: Yes Status: Acute Code(s): R91.8 - OTHER NONSPECIFIC ABNORMAL FINDING OF LUNG FIELD SNOMED Code(s): 771840051 (3) Breast nodule Current Visit: Yes Status: Acute Code(s): N63.0 - UNSPECIFIED LUMP IN UNSPECIFIED BREAST SNOMED Code(s): 99127834 Plan: 1patient presented to hospital with increasing shortness of breath and this patient has been diagnosed with a hypertensive emergency as she did have significant elevated blood pressure and features suggestive of heart failure from elevated blood pressure patient did have features of SIRS with tachycardia elevated white count elevated lactic send admission more likely related to underlying cardiac condition pneumonia less likely bilateral excluded. 2patient was noticed to have hard nodules in bilateral breast area and this patient did not have any mammogram in more than 10 years highly suspicious for malignancy. 3we will try to obtain sputum for Gram stain culture, procalcitonin mildly elevated 0.49 4patient to continue Zosyn while waiting for the culture to be finalized Dictation was produced using [employer] dictation software. please excuse any grammatical, word or spelling errors. Time with Patient: Less than 30
--- NOTE | 2023-09-06 22:00 | P.PN ---
Subjective Progress Note Date: 09/06/23 73-year-old female with no past medical history and is a poor historian. She has not seen any primary care physician in recent past. She was a past smoker with [id number] smoking history. Also reports cannabis use and opioid use occasionally. Patient presented to hospital because of worsening shortness of breath for last few days along with increased cough. On admission she was noticed to be severely hypertensive with BP 250 over 170 mmHg. Patient initial Trop was negative but repeat was elvated, NT proBNP was 8000, D- dimers were elevated for which she had a CTA chest did not show any evidence of pulm embolism but did show interstitial edema and some emphysematous changes. ECG showed sinus tachycardia with diffuse nonspecific ST changes. Progress note September 06, 2023 Due to patient's elevated troponin and finding of cardiomyopathy on echocardiogram she was scheduled for heart catheterization yesterday. Her heart catheterization showed mild nonobstructive coronary artery disease. PHYSICAL EXAMINATION Vital signs reviewed. Head: Normocephalic. Eyes: Sclerae nonicteric. Neck: Brisk carotid upstroke, no jugular venous distention. Lungs: Clear to auscultation. Heart: Regular rate and rhythm, S1-S2, no S3, no murmur or rub. Abdomen: Soft nontender, positive bowel sounds. Extremities: No edema, intact distal pulses. Neuro: Alert, oritented, no focal deficits. Detailed neuro exam was not performed. ASSESSMENT Hypertensive emergency with elevated troponins Nonischemic cardiomyopathy, likely related to hypertensive heart disease Elevated troponin, likely related to hypertensive emergency and nursing cardiomyopathy COPD emphysema, mild exacerbation Acute kidney injury Mild transaminitis Bilateral breast nodules Unintentional weight loss 20 pounds Tobacco use, marijuana use, opioid use. Carries [id number] smoking history Cardiac testing Echo shows EF of 30 to 35%, grade Balestra dysfunction, moderate left atrial dilatation, mild to moderate MR, mild aortic regurgitation PLAN Start aspirin 81 mg, atorvastatin 40 mg, Coreg 3.125 mg twice daily, amlodipine 5 mg daily, losartan 25 mg daily, hydralazine 25 mg 4 times daily Labs shows a creatinine of 1.38. Patient has a breast mass. Patient has got an appointment with breast surgeon and is getting evaluated for breast mass outpatient today. For this patient is requesting to be discharged today. I am comfortable discharging patient today as patient's blood pressure is better controlled. She does have worsening kidney function. I have advised her to follow-up with me in next 1 week on outpatient basis. I would recommend her to get labs including CBC CMP BNP levels in next 1 to 2 weeks. Objective - Vital Signs Vital signs: Vital Signs Temp 98 F 09/06/23 08:00 Pulse 92 09/06/23 13:00 Resp 19 09/06/23 13:00 BP 141/75 09/06/23 13:00 Pulse Ox 97 09/06/23 12:00 FiO2 50 09/04/23 07:26 Intake & Output 09/06/23 09/06/23 09/07/23 06:59 18:59 06:59 Intake Total 250 220 Output Total 550 Balance -300 220 Weight 48.9 kg Intake: IV 250 100 Piperacillin-Tazobactam 3 100 100 .375 gm In Sodium Chloride 0.9% 100 ml @ 25 mls/hr IVPB Q8HR [facility] Rx# :[id number] Sodium Chloride 0.9% 1, 150 000 ml In Empty Bag 1 bag @ 75 mls/hr IV .[id number] [facility] Rx#:[id number] Oral 120 Output: Urine 550 Other: Voiding Method External Catheter External Catheter - Labs CBC & Chem 7: 09/06/23 06:34 09/06/23 06:34 Labs: Abnormal Lab Results - Last 24 Hours (Table) 09/06/23 Range/Units 06:34 Chloride 113 H (98-107) mmol/L Creatinine 1.38 H (0.52-1.04) mg/dL Total Protein 5.3 L (6.3-8.2) g/dL Albumin 2.9 L (3.5-5.0) g/dL Microbiology - Last 24 Hours (Table) 09/04/23 00:58 Blood Culture - Preliminary Blood
--- NOTE | 2023-09-08 17:26 | P.DS ---
Providers Date of admission: 09/04/23 01:02 Attending physician: Scott Stafford MD Consults: 09/04/23 00:55 Consult Physician Routine Consulting Provider: Xavier Shaikh Consult Reason/Comments: Bipap patient. CHF/hypertensive emergency Do you want consulting provider notified?: Yes 09/04/23 03:03 Consult Physician Routine Consulting Provider: Eddie Mendez Consult Reason/Comments: Per tensive emergency. CHF Do you want consulting provider notified?: Yes Consult Physician Stat Consulting Provider: Celestino Peralta Consult Reason/Comments: Hypertensive emergency; pulmonary edema Do you want consulting provider notified?: Yes 09/04/23 12:35 Consult Physician Routine Consulting Provider: Mariangel Trotter Consult Reason/Comments: pneumonia Do you want consulting provider notified?: Yes 09/06/23 09:31 Consult Physician Routine Consulting Provider: Elke Buenrostro Consult Reason/Comments: results of breast us Do you want consulting provider notified?: Yes Primary care physician: Stated None Hospital Course: Diagnoses: Hypertensive emergency, controlled Alcohol withdrawal and alcohol use disorder Elevated troponin with cardiac cath on 09/04 showing nonobstructive cardiomyopathy with mild coronary artery disease Cardiomyopathy Bilateral breast nodules Mild transaminitis Hospital course: Patient a pleasant 73 years old female with no significant past medical history. Presents because of high blood pressure She was diagnosed with hypertension emergency and also with alcohol use disorder and withdrawal. She had elevated troponin and cardiac cath on 09/04 showing mild nonobstructive coronary artery disease but there is evidence of cardiomyopathy. Patient was treated with CIWA protocol, thiamine, Zosyn, IV fluid. She was started on multiple antihypertensive medication including hydralazine, Coreg, Norvasc and losartan. Also she was started on aspirin 81 mg Procalcitonin was negative. CTA of the chest was negative for PE but showing mild basilar left lower lobe in filtrate with pleural effusion and interstitial edema. Also workup showing bilateral breast nodules Creatinine 1.1 liver enzymes mildly elevated Patient showed interval improvement. She has been seen by concrete gun operator supervisor wrapping room and infectious disease. Patient was monitored in the ICU and currently back to baseline she is fully awake and oriented. She denies chest pain or dyspnea. No other new complaint. Patient eager to go home today because she has appointment with her beef farmer Dr. Garcia this afternoon at 14: 30 that she wants to catch up with. I got a call from the bedside nurse Ishan that all consultants had cleared the patient including pulmonary concrete gun operator and infectious disease who chose discharge antibiotic. Patient's wants to go home today so she can follow-up with her hr operations advisor this afternoon. Patient was cleared for discharge by all consultants as above Patient will be discharged on short course of oral antibiotics per ID team as well as all the above antihypertensive medication and aspirin Risk and benefits are explained for the patient and extensively Problems and management plan were discussed with the patient and he verbalized understanding and acceptance Patient was found stable and can be discharged home in guarded prognosis however he needs follow-up as an outpatient. Patient was instructed to follow up with PCP within one week and patient agrees Patient was instructed to call medical insurance provider to find a nearby PCP in 1 week Patient was instructed to follow-up with concrete gun operator and supervisor wrapping room as in discharge instructions Patient was instructed to follow-up with beef farmer Dr. Garcia this afternoon. Patient agrees Physical exam Gen: patient is a AAOx3, no distress CVS: S1-S2, RRR, no murmur Lungs: B/L CTA, no wheezing Abdomen: soft, no distention, no tenderness, positive bowel sounds Extremity: no leg edema or induration Time spent more than 35 minutes Patient Condition at Discharge: Fair Plan - Discharge Summary Discharge Rx Participant: Yes New Discharge Prescriptions: New cefUROXime axetiL [Ceftin] 500 mg PO BID 7 Days #14 tab Losartan [Cozaar] 25 mg PO DAILY #30 tab amLODIPine [Norvasc] 5 mg PO DAILY #30 tab hydrALAZINE HCL [Apresoline] 25 mg PO QID #120 tab carvediloL [Coreg] 3.125 mg PO BID-W/MEALS #60 tab Atorvastatin [Lipitor] 40 mg PO HS #30 tab Aspirin 81 mg PO DAILY #30 tab Discharge Medication List Aspirin 81 mg PO DAILY #30 tab 09/06/23 [Rx] Atorvastatin [Lipitor] 40 mg PO HS #30 tab 09/06/23 [Rx] Losartan [Cozaar] 25 mg PO DAILY #30 tab 09/06/23 [Rx] amLODIPine [Norvasc] 5 mg PO DAILY #30 tab 09/06/23 [Rx] carvediloL [Coreg] 3.125 mg PO BID-W/MEALS #60 tab 09/06/23 [Rx] cefUROXime axetiL [Ceftin] 500 mg PO BID 7 Days #14 tab 09/06/23 [Rx] hydrALAZINE HCL [Apresoline] 25 mg PO QID #120 tab 09/06/23 [Rx] Follow up Appointment(s)/Referral(s): Xavier Shaikh MD [STAFF PHYSICIAN] - 10/04/23 9:15 am Eddie Mendez MD [Medical Doctor] - 10 Days (The office will call with appointment date and time.) Elke Buenrostro MD [STAFF PHYSICIAN] - 1-2 Days (you have an appointment with her today 09/06/2023 at 14:30) None,Stated [Primary Care Provider] - 1-2 days Patient Instructions/Handouts: After Radial Heart Catheterization (GEN) Activity/Diet/Wound Care/Special Instructions: heart healthy diet activity is restricted till you see your doctor Discharge Disposition: HOME SELF-CARE
== END 2023-09-06 14:15 | disposition home or self-care (01) | DRG 286 ==
LOC: EC 21:33 → 3SCARD 09-04 01:02 → 2SICU 09-04 03:04
PROVIDERS: ADMIT Internal Medicine; ATTEND Internal Medicine
PROC: 5A09357 Assistance with Respiratory Ventilation, Less than 24 Consecutive Hours, Continuous Positive Airway Pressure (ICD-10-PCS; 2023-09-03)
PROC: B2111ZZ Fluoroscopy of Multiple Coronary Arteries using Low Osmolar Contrast (ICD-10-PCS; principal; 2023-09-05 16:05)
PROC: 4A023N7 Measurement of Cardiac Sampling and Pressure, Left Heart, Percutaneous Approach (ICD-10-PCS; principal; 2023-09-05 16:05)
DX: I16.1 Hypertensive emergency (principal); J18.9 Pneumonia, unspecified organism; J96.01 Acute respiratory failure with hypoxia; F10.231 Alcohol dependence with withdrawal delirium; I42.8 Other cardiomyopathies; N17.9 Acute kidney failure, unspecified; J44.1 Chronic obstructive pulmonary disease with (acute) exacerbation; J44.0 Chronic obstructive pulmonary disease with (acute) lower respiratory infection; Z68.1 Body mass index [BMI] 19.9 or less, adult; I50.9 Heart failure, unspecified; I11.0 Hypertensive heart disease with heart failure; I25.10 Atherosclerotic heart disease of native coronary artery without angina pectoris; Z87.891 Personal history of nicotine dependence; R63.4 Abnormal weight loss; Z91.199 Patient's noncompliance with other medical treatment and regimen due to unspecified reason; R79.89 Other specified abnormal findings of blood chemistry; R79.1 Abnormal coagulation profile; N63.0 Unspecified lump in unspecified breast; R74.01 Elevation of levels of liver transaminase levels
CPT/HCPCS: 36415; 71045; 71275; 80048; 80053; 80061; 80306; 81003; 83036; 83605; 83735; 83880; 84145; 84443; 84484; 85025; 85379; 85610; 85730; 87040; 87390; 87636; 93005; 93306; 93458; 93975; 94640; 94660; 94760; 96365; 96366; 96375; 99291

== ENCOUNTER → 2023-09-06 | Outpatient (CLI) | payer MEDICARE ==
--- NOTE | 2023-09-06 15:22 | P.GSCN ---
History of Present Illness Consult date: 09/06/23 Reason for Consult: Bilateral breast masses Requesting physician: Xavier Shaikh History of present illness: 73-year-old female who was recently admitted to the intensive care unit with uncontrolled hypertension. During her admission she was noted on breast examination to have masses in both breast. She underwent a bilateral ultrasound of the breast in the axilla which revealed what appeared to be bilateral breast implants as well as a left axillary lymph node measuring 1.1 x 1 cm at the 12 o'clock position 4 cm from the nipple. There was also a masslike area of the left breast. This was at the 12 o'clock position and was 2.1 x 1.3 cm. Biopsy was recommended of each site however appropriate workup including mammogram was recommended. She additionally had a CAT scan performed and on the CAT scan it appears that she has implants in both breast. She has lumps in both her breast for about 20 years. They are worse in the left breast. Patient has not had a mamogram for 20 years secondary to pain. She has not had any surgery on her breast. She is not complaining of any recent trauma or infection of the breast. CAffiene: 2 cups coffee/day nicotine: stopped 3 weeks ago, used to smoke 1/2 PPD for many years chocolate: weekly BCP: used for about 30 years Family History: sister: of breast cancer at 45 Hormonal History: menarche: 10 G1A1, at 41 menopause: 45 Surgical History: none Medical History: HTN COPD Social History: nicotine: as above alcohol: daily [employer] [place] drugs: Weekend marijuana use Review of Systems - Constitutional Reports weight loss, Denies fever - EENT EENT Comment(s): cataract left eye Ears: deny: decreased hearing, tinnitus Ears, nose, mouth and throat: Denies dysphagia - Breasts bilateral: as per HPI - Cardiovascular Reports shortness of breath, Denies chest pain - Respiratory Reports cough - Gastrointestinal Reports as per HPI - Genitourinary Genitourinary: Denies dysuria, Denies hematuria Menstruation: Reports postmenopausal - Musculoskeletal Reports as per HPI - Integumentary Denies rash, Denies unusual bruising - Neurological Denies headaches, Denies syncope - Psychiatric Reports as per HPI, Reports anxiety - Endocrine Endocrine Comment(s): 20 pound weight loss Reports weight change - Hematologic/Lymphatic Denies easy bleeding, Denies easy bruising - Allergic/Immunologic Reports as per HPI Past Medical History Past Medical History: Hypertension History of Any Multi-Drug Resistant Organisms: None Reported Past Surgical History: No Surgical Hx Reported Past Anesthesia/Blood Transfusion Reactions: No Reported Reaction Smoking Status: Former smoker Past Alcohol Use History: Occasional Past Drug Use History: Marijuana Medications and Allergies Home Medications Medication Instructions Recorded Confirmed Type Aspirin 81 mg PO DAILY #30 tab 09/06/23 Rx Atorvastatin [Lipitor] 40 mg PO HS #30 tab 09/06/23 Rx Losartan [Cozaar] 25 mg PO DAILY #30 tab 09/06/23 Rx amLODIPine [Norvasc] 5 mg PO DAILY #30 tab 09/06/23 Rx carvediloL [Coreg] 3.125 mg PO BID-W/MEALS #60 tab 09/06/23 Rx cefUROXime axetiL [Ceftin] 500 mg PO BID 7 Days #14 tab 09/06/23 Rx hydrALAZINE HCL [Apresoline] 25 mg PO QID #120 tab 09/06/23 Rx Allergies Allergy/AdvReac Type Severity Reaction Status Date / Time No Known Allergies Allergy Verified 09/04/23 10:47 Surgical - Exam - General no distress - Eyes normal ocular movement - Neck trachea midline - Respiratory normal respiratory effort, clear to auscultation - Cardiovascular Heart Sounds: normal: S1, S2 - Abdomen Abdomen: soft, non tender, no guarding, no rigid, no rebound - Integumentary normal turgor - Musculoskeletal normal gait - Psychiatric oriented to time, oriented to person, oriented to place, speech is normal, memory intact Breast Exam: BRA: 34B inspection: Fullness bilateral breast with a protrusion in the upper outer quadrant of the right breast bilateral nipple inversion Palpation: Right breast: In the upper outer quadrant there is a protrusion from the skin and a fullness that appears to be consistent with an implant occupying the majority of the breast parenchyma no other discrete masses are noted Right axilla: Shotty adenopathy Left breast: There appears to be findings consistent with an implant occupying the majority of the breast parenchyma no other discrete masses are noted Left axilla no discrete adenopathy of concern Results Ultrasound of right and left breast I reviewed with Dr. Poon as well as CT scan there are bilateral breast masses which appear to be consistent with implants however the patient denies having had implants additionally there is an enlarged lymph node in the left axilla Assessment and Plan Assessment: Impression: Bilateral breast masses 2 areas are palpable in the right breast with some shotty adenopathy in the right side Radiographic evidence of bilateral breast fluid-filled masses consistent with implants which the patient denies having Plan: Bilateral mammogram bilateral breast MRI Follow-up after mammogram and MRI CC: Dr. Shaikh
[2023-09-06 15:47] VITALS: BP 171/102; PULSE 83; RESP 17; TEMP 98.1
== END ==
LOC: WWCWWP 14:52
PROVIDERS: ATTEND Surgery
DX: N63.10 Unspecified lump in the right breast, unspecified quadrant (principal); N63.20 Unspecified lump in the left breast, unspecified quadrant; N60.09 Solitary cyst of unspecified breast; R59.9 Enlarged lymph nodes, unspecified; I10 Essential (primary) hypertension; Z87.891 Personal history of nicotine dependence; Z80.3 Family history of malignant neoplasm of breast; Z79.899 Other long term (current) drug therapy; Z98.82 Breast implant status